=== PATIENT | male | born 1950 | race African-American/Black ===

== ENCOUNTER 2017-02-08 17:29 | Inpatient (IN) ==
[2017-02-08] MEDS ORDERED: MECLIZINE 25 MG TABLET PO STA (18:02)
[2017-02-08] MEDS ORDERED: ONDANSETRON 4 MG/2 ML VIAL IV STA (18:02)
--- NOTE | 2017-02-08 18:10 | Emergency Department Note ---
Arrival - Arrival Chief Complaint: Syncope Stated Complaint: DIZZINESS,BLACK OUT ED Nursing Triage Note: C/O HAVING SYNCOPE EPISODE APX. 1 HOUR [employer]., STATES THIS OCCURED WHEN HE STOOD UP., DENIES HAVING PAIN, + DIZZINESS, DENIES HAVING SOB., DENIES HAVING CHEST PAIN, STATES THIS HAS HAPPEN IN THE PAST, + HEADACHE , EKG OBTAINED AT TIME OF TRIAGE Mode of Arrival: Ambulatory Limitations: No Limitations Source: Patient Time Seen by Provider: 02/08/17 18:02 - History of Present Illness HPI Narrative: This 66-year-old black male presents with a history per his daughter of being extremely dizzy and ataxic this afternoon, stumbling and falling twice, the second time losing consciousness for several seconds. Of note, the patient does have significant problems with persistent orthostasis and is currently being worked up for Parkinson's disease. Currently the patient states he is dizzy and slightly nauseated but denies any chest pain, shortness of breath, diaphoresis, or lesley vomiting with this episode. He does relate that for the last several days he has had an occipital headache but has not had any slurred speech, visual changes, or focal deficits associated with this. As regards his Parkinson's workup, he has developed significant problems with a staggering gait already which apparently the development of orthostasis problems and has exacerbated. Currently at rest in bed he is in no acute medical distress. Onset (ago): hour(s) (Patient presents approximately 1 hour post incident) Allergies/Adverse Reactions: Allergies Allergy/AdvReac Type Severity Reaction Status Date / Time No Known Allergies Allergy Verified 02/08/17 17:40 Home Medications: Home Medications Medication Instructions Recorded Confirmed Type Ergocalciferol (Vitamin D2) 2,000 unit PO DAILY 04/11/16 02/08/17 History [Vitamin D2] Methocarbamol 500 mg PO DAILY 04/11/16 02/08/17 History Cyanocobalamin (Vitamin B-12) 1,000 mcg PO DAILY 02/08/17 02/08/17 History [Vitamin B-12] Gabapentin Cap/Tab [Neurontin 300 mg PO DAILY 02/08/17 02/08/17 History Cap/Tab] [place]-3/Dha/Epa/Fish Oil [Fish Oil 1 each PO DAILY 02/08/17 02/08/17 History 1,000 mg Softgel] Omeprazole [Prilosec] 20 mg PO DAILY 02/08/17 02/08/17 History Sertraline [Zoloft] 100 mg PO DAILY 02/08/17 02/08/17 History Trazodone HCl 100 mg PO DAILY 02/08/17 02/08/17 History Triamterene/Hydrochlorothiazid 1 each PO DAILY 02/08/17 02/08/17 History [Triamterene-Hctz 37.5-25 mg Tb] amLODIPine [Norvasc] 5 mg PO DAILY 02/08/17 02/08/17 History clonazePAM TAB [KlonoPIN] 0.5 mg PO BID 02/08/17 02/08/17 History risperiDONE [Risperidone] 3 mg PO BID 02/08/17 02/08/17 History Review of System - Review of System 12 point system: reviewed and no additional remarkable complaints except as stated - Review of System Constitutional: Present: as per HPI Respiratory: Present: as per HPI Cardiovascular: Present: as per HPI Gastrointestinal: Present: as per HPI Neurological: Present: as per HPI Medical,Surgical,& Family Hx - Medical History Cardio: History of: Hypertension Psychological: History of: Anxiety Disorders, Depression Neurology: History of: Parkinson's Disease Gastrointestinal: History of: GI Problems (ulcers) - Social History Smoking Status: Never smoker Frequency of Alcohol Use: Frequently Type of Drug Use: None Exam Physical Examination: GENERAL: Well developed, well nourished elderly black male in no acute distress. HEENT: Normocephalic. No trauma. Moist mucous membranes. EOMI. PERRLA. ENT NML NECK: Supple. No adenopathy. CARDIAC: Regular. No murmurs. Heart rate 78 CHEST: Clear to auscultation. No respiratory distress. O2 sat 100% ABDOMEN: Soft. Nontender. Active bowel sounds. EXTREMITIES: No trauma. Normal ROM. No pedal edema. SKIN: No diaphoresis. No rash. NEURO: Alert. Oriented 3. Motor, sensory, vibratory intact. Notable was mild cogwheel rigidity. No focal deficits. Vital Signs: Vital Signs Temperature 98.0 F 02/08/17 17:55 Pulse Rate 93 H 02/08/17 17:55 Respiratory Rate 18 02/08/17 18:11 Blood Pressure 143/79 02/08/17 17:55 O2 Sat by Pulse Oximetry 100 02/08/17 17:55 Course - Reevaluation(s) Reevaluation #1: Advise family of the need for hospitalization for evaluation and treatment of his metabolic abnormalities. - Consultations Consultation #1: Discussed with the hospitalist service who will admit for further evaluation treatment. Results - Labs CBC & BMP: 02/08/17 18:04 02/08/17 18:04 Labs: I reviewed the laboratory noted the severe hyponatremia - Impressions EKG: Sinus rhythm at 78, first-degree AV block with normal QRS duration. Occasional PACs. Nonspecific ST changes but no evidence of an acute injury pattern. - Diagnostic Findings Procedure: Chest x-ray: image reviewed by me, report reviewed by me (Normal chest), CT: image reviewed by me, report reviewed by me (Head: Bilateral frontal lobe atrophy with microvascular ischemia but no acute injury noted) Disposition Clinical Impression: Hyponatremia, Presumed Parkinson's disease Case discussed with: patient, patient's family Disposition: Still a Patient Condition: Guarded Time of Disposition: 19:07
[2017-02-08 18:12] LABS: Basophils % 0.2 % (0.0-0.8); Eosinophils % 0.2 % (0.00-10.9); Hematocrit 35.8 VOL% (42.0-52.0); Immature Granulocytes % 0.4 %; Immature Granulocytes Absolute 0.03 #; Lymphocytes # 1.1 10*3/uL (1.4-4.0); Lymphocytes % 13.7 % (21.2-54.2); Mean Corpuscular HGB Conc 33.5 GM/DL (32-36); Mean Corpuscular Hemoglobin 22 PG (27-34); Mean Corpuscular Volume 65.8 FL (87-102); Mean Platelet Volume 11.3 FL (9.6-12.0); Monocytes # 0.6 10*3/uL (0.11-0.8); Neutrophils # 6.4 10*3/uL (1.4-7.4); Neutrophils % 78.5 % (38.7-73.9); Platelet Count 267 T/CUMM (130-400); Red Blood Count 5.44 MC/CUMM (3.8-5.5); Red Cell Distribution Width 15.9 % (9.3-17.3); White Blood Count 8.2 T/CUMM (4-12)
--- NOTE | 2017-02-08 18:23 | CT Report ---
Exam: CT scan of brain without contrast Date: 02/08/2017 Indication: Syncopal Comparison: 04/11/2016 Patient's classification: Emergency department Technical: Images were obtained from the skull base to the vertex without the use of intravenous contrast. Dose reduction was performed with decreasing kv and mA and automated exposure Total DLP: 1042.6 mGy*cm Findings: Brainstem and cerebellum reveal no acute findings. Minimal atrophic changes of the frontal lobes bilaterally. The ventricles are intact. Calvarium is unremarkable. The paranasal sinuses globes and cell and mastoids are unremarkable. Impression: 1. No acute hemorrhage, infarction or mass effect. 2. Minimal atrophic changes of the frontal lobes present bilaterally PROCEDURE INTERPRETED AT [facility] DEPARTMENT OF RADIOLOGY Final Report Signed by: Dr. Enio Magaña
[2017-02-08] MEDS ORDERED: MECLIZINE 25 MG TABLET ONE (18:31)
[2017-02-08] MEDS ORDERED: ONDANSETRON 4 MG/2 ML VIAL ONE (18:31)
[2017-02-08 18:43] LABS: Albumin 3.8 G/DL (3.4-5.0); Bilirubin,Total 0.4 MG/DL (0.2-1.0); Calcium 8.6 MG/DL (8.5-10.1); Osmolality,Calculated 243.1 MOS/KG (273-304); Potassium 3.9 MMOL/L (3.5-5.1); Total Protein 7.9 G/DL (6.4-8.3)
[2017-02-08 18:44] LABS: Troponin I Only < 0.015 NG/ML (0.00-0.045)
--- NOTE | 2017-02-08 18:49 | XRay Report ---
Exam: XR chest 1V portable Date: 02/08/2017 6:11 PM Indication: Shortness of breath Comparison: 04/11/2016 Technical: AP Findings: External cardiac leads oxygen tubing are present. The heart, lungs, mediastinum and bony structures reveal no acute findings. Small granuloma is present that is calcified in the right base unchanged Impression: 1. No acute cardiopulmonary pathology PROCEDURE INTERPRETED AT [facility] DEPARTMENT OF RADIOLOGY Final Report Signed by: Dr. Enio Magaña
[2017-02-08] MEDS ORDERED: SODIUM CHLORIDE 0.9% 1,000 ML IV STA (19:00)
[2017-02-08 19:35] LABS: Apearance,Urine CLEAR (Clear); Bilirubin,Urine Negative (Negative); Blood, Urine Small mg/dL (Negative); Glucose,Urine (UA) 150 mg/dL (Negative); Ketones,Urine Negative (Negative); Nitrite,Urine Negative (Negative); Protein,Urine Negative; Urine Color Colorless (Yellow); Urine Specific Gravity 1.001 (1.001-1.035); Urine Urobilinogen < 2.0 EU/DL (0.2-1.0)
--- NOTE | 2017-02-08 19:36 | Hospitalist History & Physical ---
Assessment and Plan (1) Movement disorder Status: Acute Assessment and plan: The patient is admitted to the hospital with difficulty falling. We will observe for arrhythmia and we will obtain physical and occupational therapy consultations. We will request neurology consultation. The patient has hyponatremia. We will treat him with IV normal saline, hold diuretics, and recheck electrolytes tomorrow. Current Visit: Yes (2) Neck pain Status: Acute Current Visit: Yes (3) Hypertension, essential Status: Acute Current Visit: Yes (4) Anxiety Status: Acute Current Visit: Yes History of Present Illness Chief complaint: Falling at home History of present illness: Mr. 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 I discussed the case with Dr. Brown in the emergency room and he asked us to evaluate the patient for admission. the patient has had neck pain and bilateral arm radiculopathy for several years. The patient was living at home. His daughter came to the locked door of the home and called for him today. She heard him fall after getting up from the couch and he fell again at the doorway. The patient's daughter states that he has had increasing weakness and difficulty with balance. She describes an ongoing investigation at the [place] where he is scheduled to see a neurologist and have further x-rays done of his neck. The patient denies fever, chills, abdominal pain, ear discomfort or congestion. The patient's dizziness and imbalance is moderate, continuous, and gradually worsening. Home Medications Medication Instructions Recorded Confirmed Type Ergocalciferol (Vitamin D2) 2,000 unit PO DAILY 04/11/16 02/08/17 History [Vitamin D2] Methocarbamol 500 mg PO DAILY 04/11/16 02/08/17 History Cyanocobalamin (Vitamin B-12) 1,000 mcg PO DAILY 02/08/17 02/08/17 History [Vitamin B-12] Gabapentin Cap/Tab [Neurontin 300 mg PO DAILY 02/08/17 02/08/17 History Cap/Tab] [place]-3/Dha/Epa/Fish Oil [Fish Oil 1 each PO DAILY 02/08/17 02/08/17 History 1,000 mg Softgel] Omeprazole [Prilosec] 20 mg PO DAILY 02/08/17 02/08/17 History Sertraline [Zoloft] 100 mg PO DAILY 02/08/17 02/08/17 History Trazodone HCl 100 mg PO DAILY 02/08/17 02/08/17 History Triamterene/Hydrochlorothiazid 1 each PO DAILY 02/08/17 02/08/17 History [Triamterene-Hctz 37.5-25 mg Tb] amLODIPine [Norvasc] 5 mg PO DAILY 02/08/17 02/08/17 History clonazePAM TAB [KlonoPIN] 0.5 mg PO BID 02/08/17 02/08/17 History risperiDONE [Risperidone] 3 mg PO BID 02/08/17 02/08/17 History Allergies Allergy/AdvReac Type Severity Reaction Status Date / Time No Known Allergies Allergy Verified 02/08/17 17:40 Medical,Surgical,& Family Hx - Medical History Cardio: History of: Hypertension Psychological: History of: Anxiety Disorders, Depression Neurology: History of: Parkinson's Disease Gastrointestinal: History of: GI Problems (ulcers) - Family History Family History: Reports;: Family Hypertension - Social History Smoking Status: Never smoker Frequency of Alcohol Use: Frequently Type of Drug Use: None Marital Status: Lives With:: Alone Functional capacity: uses cane/walker 12 point system: reviewed and no additional remarkable complaints except as stated Exam - Constitutional Vitals: Period Temp Pulse Resp BP Sys/Schuler Pulse Ox Last 24 Hr 98.0 F-98.0 F 93-93 18-18 143-143/79-79 100-100 Exam: Constitutional System: No distress. No tremulousness. The patient has some passive affect. Head: Normocephalic, atraumatic. Ears, Nose and Throat System: No evidence of Otitis or Mastoiditis. No epistaxis or discharge Eyes System: Pupils equal, round, and reactive. Extraocular muscles intact. Neck: Supple, without adenopathy, No jugular venous distention. No thyromegaly , neck mass, or prior surgery apparent. Respiratory System: Chest clear to auscultation. Cardiovascular System: Heart with regular rate and rhythm. No murmur. GI System: Abdomen soft, nontender. Normo active bowel sounds present. Musculoskeletal System: limbs with no pedal edema. Full distal pulses. Neurological System: No discernable sensory deficit. No aphasia. The patient has some passive rigidity in the upper extremities Psychiatric System: Conversation is rational Capillary Refill: less than 3 sec Results - Labs CBC & BMP: 08/26/17 18:04 02/08/17 18:04 Lab Results: I have reviewed the past 24 hour labs
[2017-02-08 19:45] LABS: Barbiturates Screen,Urine Negative (Negative); Benzodiazepines Screen,Urine Negative (Negative); Cannabinoid Screen,Urine Negative (Negative); Opiate Screen,Urine Negative (Negative); Phencyclidine Screen,Urine Negative (Negative)
[2017-02-08] MEDS ORDERED: ACETAMINOPHEN 325 MG TABLET PO PRN (19:57)
[2017-02-08] MEDS: clonazePAM 0.5 MG TABLET PO SCH (22:00)
[2017-02-08] MEDS: risperiDONE 3 MG TABLET PO SCH (22:00)
[2017-02-08] MEDS: ENOXAPARIN 40 MG/0.4 ML SYRINGE SUBCUT SCH (22:00)
[2017-02-09] MEDS: SODIUM CHLORIDE 0.9% 1,000 ML IV SCH ×3 (01:14→18:30)
[2017-02-09 05:21] LABS: Basophils % 0.1 % (0.0-0.8); Eosinophils % 0.3 % (0.00-10.9); Hematocrit 34.4 VOL% (42.0-52.0); Hemoglobin 11.5 GM/DL (14.0-18.0); Immature Granulocytes % 0.4 %; Immature Granulocytes Absolute 0.03 #; Lymphocytes # 1.1 10*3/uL (1.4-4.0); Lymphocytes % 14.7 % (21.2-54.2); Mean Corpuscular HGB Conc 33.4 GM/DL (32-36); Mean Corpuscular Hemoglobin 22 PG (27-34); Mean Corpuscular Volume 65.8 FL (87-102); Monocytes # 0.6 10*3/uL (0.11-0.8); Monocytes % 8.3 % (1.7-12.7); Neutrophils # 5.9 10*3/uL (1.4-7.4); Neutrophils % 76.2 % (38.7-73.9); Red Blood Count 5.23 MC/CUMM (3.8-5.5); White Blood Count 7.8 T/CUMM (4-12)
[2017-02-09 05:36] LABS: Blood Urea Nitrogen 8 MG/DL (7-18); Calcium 8.9 MG/DL (8.5-10.1); Glucose 92 MG/DL (74-106); Magnesium 2.7 MG/DL (1.8-2.4); Osmolality,Calculated 261.5 MOS/KG (273-304); Potassium 4.4 MMOL/L (3.5-5.1); Sodium 132 MMOL/L (136-145); Troponin I Only < 0.015 NG/ML (0.00-0.045)
[2017-02-09 05:47] LABS: Platelet Count 246 T/CUMM (130-400)
[2017-02-09 07:25] LABS: Hypochromasia Slight
--- NOTE | 2017-02-09 07:53 | EKG Report ---
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
--- NOTE | 2017-02-09 08:36 | Hospitalist Progress Note ---
Assessment and Plan - Time spent with patient Time spent with patient: Less than 30 minutes (1) Hyponatremia Status: Acute Assessment and plan: Patient sodium level has improved with hydration and discontinuation of his diuretic therapy. We will follow-up levels in the a.m. Current Visit: Yes (2) Movement disorder Status: Acute Assessment and plan: Neurology has been consulted to assist with his care. He apparently has been having frequent falls at home. Will involve physical therapy and he may need to consider alternative living arrangements. Current Visit: Yes (3) Neck pain Status: Acute Current Visit: Yes (4) Hypertension, essential Status: Acute Assessment and plan: Blood pressures are currently stable. Continue current regimen. Current Visit: Yes (5) Anxiety Status: Acute Current Visit: Yes Hospitalist: Subjective Interval history: Patient has been seen and chart has been reviewed. Mr. Nguyễn denies any chest pain, shortness of breath, neck pain, abdominal pain, nausea, vomiting, diarrhea, constipation. He states it he feels improved today. Exam - Constitutional Vitals: Period Temp Pulse Resp BP Sys/Schuler Pulse Ox Last 24 Hr 97.6 F-99.8 F 70-93 16-18 132-147/63-79 90-100 General appearance: no acute distress - Head Head exam: Present: normocephalic, atraumatic - Eye Eye exam: Present: EOMI Pupils: Present: ANTHONY - ENT ENT exam: Present: normal exam, normal oropharynx - Neck Neck exam: Present: normal inspection - Respiratory Respiratory exam: Present: clear to auscultation bilaterally. Absent: rales, rhonchi, wheezes - Cardiovascular Cardiovascular exam: Present: regular rate and rhythm. Absent: systolic murmur , tachycardia - GI/Abdominal GI/Abdominal exam: Present: normal bowel sounds, soft. Absent: tenderness, rebound - Extremities Exam Extremities exam: Absent: calf tenderness, edema - Neurological Exam Neurological exam: Present: alert, oriented X3, CN II-XII intact. Absent: motor sensory deficit - Psychiatric Psychiatric exam: Present: normal affect, normal mood. Absent: agitated, anxious - Skin Skin exam: Present: warm, dry. Absent: erythema, rash Results - Labs CBC & BMP: 02/09/17 04:12 02/09/17 04:12 Lab Results: I have reviewed the past 24 hour labs - EKG EKG shows: sinus rhythm - Diagnostic Findings Procedure: Chest x-ray: report reviewed by me, CT: report reviewed by me
[2017-02-09] MEDS: CHOLECALCIFEROL 1,000 UNIT TABLET PO SCH (10:53)
[2017-02-09] MEDS: CYANOCOBALAMIN 500 MCG TABLET PO SCH (10:53)
[2017-02-09] MEDS: PANTOPRAZOLE 40 MG TABLET PO SCH (10:54)
[2017-02-09] MEDS: clonazePAM 0.5 MG TABLET PO SCH ×2 (10:54→21:26)
[2017-02-09] MEDS: amLODIPine 5 MG TABLET PO SCH (10:54)
[2017-02-09] MEDS: risperiDONE 3 MG TABLET PO SCH ×2 (10:55→21:26)
[2017-02-09] MEDS: ENOXAPARIN 40 MG/0.4 ML SYRINGE SUBCUT SCH (21:26)
[2017-02-10] MEDS: SODIUM CHLORIDE 0.9% 1,000 ML IV SCH ×2 (04:49→14:26)
[2017-02-10 06:12] LABS: Basophils % 0.2 % (0.0-0.8); Eosinophils % 0.5 % (0.00-10.9); Hematocrit 32.1 VOL% (42.0-52.0); Hemoglobin 10.4 GM/DL (14.0-18.0); Immature Granulocytes % 0.3 %; Immature Granulocytes Absolute 0.02 #; Lymphocytes # 1.2 10*3/uL (1.4-4.0); Lymphocytes % 18.3 % (21.2-54.2); Mean Corpuscular HGB Conc 32.4 GM/DL (32-36); Mean Corpuscular Hemoglobin 22 PG (27-34); Mean Corpuscular Volume 67.4 FL (87-102); Mean Platelet Volume 11.8 FL (9.6-12.0); Monocytes # 0.6 10*3/uL (0.11-0.8); Monocytes % 9.2 % (1.7-12.7); Neutrophils # 4.6 10*3/uL (1.4-7.4); Neutrophils % 71.5 % (38.7-73.9); Platelet Count 237 T/CUMM (130-400); Red Blood Count 4.76 MC/CUMM (3.8-5.5); Red Cell Distribution Width 16.2 % (9.3-17.3); White Blood Count 6.4 T/CUMM (4-12)
[2017-02-10 06:42] LABS: Calcium 8.5 MG/DL (8.5-10.1); Osmolality,Calculated 272.7 MOS/KG (273-304); Potassium 4.3 MMOL/L (3.5-5.1)
--- NOTE | 2017-02-10 09:20 | Neurology Consult Note ---
History of Present Illness History of present illness: 66 years old right-handed -N[place]ian gentleman with a history of some sort of movement disorder on Risperdal admitted the hospital after he failed twice few minutes apart. Patient reported that he might have passed out for a few seconds but he is not sure. He reported that he fell almost a month ago prior to this. No tongue biting or urinary incontinence reported. No generalized tonic-clonic activity reported either. CT of the head reveals no acute abnormalities. Patient does have some difficulty in walking. No difficulty in performing ADLs at home. Family reported that he has had increasing weakness and difficulty with balance lately. She describes an ongoing investigation at the [place] where he is scheduled to see a neurologist. Patient has no fever chills abdominal pain ear discomfort or congestion. Home Medications Medication Instructions Recorded Confirmed Type Ergocalciferol (Vitamin D2) 2,000 unit PO DAILY 04/11/16 02/08/17 History [Vitamin D2] Methocarbamol 500 mg PO DAILY 04/11/16 02/08/17 History Cyanocobalamin (Vitamin B-12) 1,000 mcg PO DAILY 02/08/17 02/08/17 History [Vitamin B-12] Gabapentin Cap/Tab [Neurontin 300 mg PO DAILY 02/08/17 02/08/17 History Cap/Tab] [place]-3/Dha/Epa/Fish Oil [Fish Oil 1 each PO DAILY 02/08/17 02/08/17 History 1,000 mg Softgel] Omeprazole [Prilosec] 20 mg PO DAILY 02/08/17 02/08/17 History Sertraline [Zoloft] 100 mg PO DAILY 02/08/17 02/08/17 History Trazodone HCl 100 mg PO DAILY 02/08/17 02/08/17 History Triamterene/Hydrochlorothiazid 1 each PO DAILY 02/08/17 02/08/17 History [Triamterene-Hctz 37.5-25 mg Tb] amLODIPine [Norvasc] 5 mg PO DAILY 02/08/17 02/08/17 History clonazePAM TAB [KlonoPIN] 0.5 mg PO BID 02/08/17 02/08/17 History risperiDONE [Risperidone] 3 mg PO BID 02/08/17 02/08/17 History Allergies Allergy/AdvReac Type Severity Reaction Status Date / Time No Known Allergies Allergy Verified 02/08/17 17:40 12 point system: reviewed and no additional remarkable complaints except as stated Medical,Surgical,& Family Hx - Medical History Cardio: History of: Hypertension Psychological: History of: Anxiety Disorders, Depression Neurology: History of: Parkinson's Disease Gastrointestinal: History of: GI Problems (ulcers) - Surgical History Cardiac Surgeries: Patient Denies: Cardiac Catheterization Thoracic Surgeries: Patient denies;: Lobectomy Abdominal Surgeries: Patient denies: Abdominal Surgery Reproductive Surgeries: Patient denies;: Genitourinary Surgery - Family History Family History: Reports;: Family Hypertension - Social History Smoking Status: Never smoker Frequency of Alcohol Use: Frequently Type of Drug Use: None Exam - Constitutional Vitals: Period Temp Pulse Resp BP Sys/Schuler Pulse Ox Last 24 Hr 97.0 F-98.9 F 69-86 16-18 133-165/60-75 93-100 Exam: GENERAL: Patient is in no acute distress. NECK: Neck is supple. There is no JVD. No carotid bruits present. No thyroid masses. CVS: First and second heart sounds are normal. There is no S3 present. Regular rate and rhythm. RESPIRATORY: Lungs are clear to auscultation without any rales or rhonchi. ABDOMEN: Soft and non-tender. Bowel sounds are present. There is no hepatosplenomegaly. EXT: There is no palpable edema. Peripheral pulses are present. Skin: No rashes Central Nervous system: General: Alert, awake and Oriented x 3 Speech: Fluent Comprehension: Intact and normal Facial expressions: Normal Cranial Nerves: CN1/Olfactory: Normal CN II/ Optic: Normal, Visual Colvin unreliable CN III, and : ANTHONY & EOMI CN V: Normal & intact CN VII: face is symmetric CNVIII: Normal CN XI/X/XI/XII: Intact and Normal Motor: Mild bilateral cogwheel rigidity and bradykinesia Strength in the right 4-5/5 Strength in the left 4-5/5 Sensory: Grossly intact for all the modalities of PP, LT and temp sense Reflexes: 1+ and symmetrical Cerebellar function: Slow finger to nose and heel to ornelas testing. Toes: Equivocal Gait: Slightly stooped posture, reduced arm swing. Turning at 180 is in one step Results - Labs CBC & BMP: 02/10/17 05:54 02/10/17 05:54 Assessment and Plan (1) Extrapyramidal syndrome Status: Acute Assessment and plan: He does have quite a bit of signs and symptoms of extrapyramidal syndrome. Etiology is not clear. He has been taking Risperdal for a while which could be the cause. Other differential would include Parkinson disease or Parkinson's plus syndrome. It does require further investigations. I am not quite sure why is he on Risperdal. Does he has any psychiatric illness? Will cut back on Risperdal and try to take him off of it slowly. We will go ahead and perform MRI of the brain and cervical spine. Thank you for the consult Current Visit: Yes
[2017-02-10] MEDS: risperiDONE 3 MG TABLET PO SCH (09:22)
[2017-02-10] MEDS: CYANOCOBALAMIN 500 MCG TABLET PO SCH (09:22)
[2017-02-10] MEDS: CHOLECALCIFEROL 1,000 UNIT TABLET PO SCH (09:22)
[2017-02-10] MEDS: PANTOPRAZOLE 40 MG TABLET PO SCH (09:22)
[2017-02-10] MEDS: amLODIPine 5 MG TABLET PO SCH (09:22)
[2017-02-10] MEDS: clonazePAM 0.5 MG TABLET PO SCH ×2 (09:22→21:12)
--- NOTE | 2017-02-10 15:23 | Magnetic Resonance Report ---
History: Frequent falls. Syncope. Difficulty walking. Difficulty with balance. History of Parkinson's disease Date: 02/10/2017 Study: MRI head without IV contrast Comparison exam: CT head February 08, 2017 The brain was imaged in 3 planes on the 1.5 Dominique magnet without IV contrast, to include diffusion, T2, FLAIR, gradient-echo, and T1-weighted sequences. The ventricles are midline in position without evidence of hydrocephalus. There is no Chiari I malformation. There is no gross pituitary mass. There is no evidence of acute ischemia on the diffusion sequence. There is no mass or parenchymal hemorrhage. There is a minimal amount of ill-defined patchy FLAIR signal in the periventricular white matter without mass effect compatible with changes of small vessel disease. There is no extra-axial hematoma. There is a normal flow void in the superior sagittal sinus. There is no gross flow abnormality in the [place] area. There is no obvious cerebellopontine angle mass. Impression: No acute intracranial process. Mild periventricular small vessel disease PROCEDURE INTERPRETED AT [facility] DEPARTMENT OF RADIOLOGY Final Report Signed by: Dr. Shalonda Hackett
--- NOTE | 2017-02-10 15:31 | Magnetic Resonance Report ---
History: Frequent falls. Syncope. Difficulty walking. Difficulty with balance. History of Parkinson's disease Date: 02/10/2017 Study: MRI cervical spine without contrast Comparison exam: No previous The cervical spine was scanned in the sagittal and axial planes on a 1.5 Dominique magnet without IV contrast. Sequences include T1, T2, and T2 fat sat images. The cervical cord is normal in signal without intrinsic mass lesion or edema on this noncontrast study. There is no Chiari I information. There is moderate degenerative disc narrowing at C5-C6. There is scattered mild to moderate anterior spondylosis at C3-C4 through C6-C7. There are scattered moderate disc desiccation. C2-C3: There is no significant spinal or neural foraminal stenosis. There is mild facet hypertrophy C3-C4: There is mild spinal stenosis related to a broad-based posterior central mild disc protrusion, superimposed upon some minimal bulging disc and vertebral body osteophyte. There is moderate right and mild left neural foraminal narrowing related to uncovertebral and facet hypertrophy C4-C5: There is mild to moderate spinal stenosis related to mild posterior diffuse bulging disc with minimal associated vertebral body osteophyte. There is also mild hypertrophic change of the ligamentum flavum. There is moderate or greater left and moderate right neural foraminal narrowing related to uncovertebral and facet hypertrophy C5-C6: There is mild spinal stenosis related to minimal posterior diffuse disc bulging. There is moderate left neural foraminal narrowing related to facet hypertrophy C6-C7: There is mild spinal stenosis related to mild posterior diffuse disc bulging as well as mild hypertrophic change of the ligament flavum. There is mild to moderate left greater than right neural foraminal narrowing related to facet hypertrophy C7-T1: There is no significant spinal or neural foraminal stenosis Impression: Multilevel mild to moderate spinal stenosis related to posterior bulging or protruding disc without high-grade spinal stenosis or gross cord deformity or cord edema. Please see the above discussion for information regarding the individual levels Multilevel neural foraminal narrowing related to uncovertebral and facet hypertrophy Degenerative disc disease PROCEDURE INTERPRETED AT [facility] DEPARTMENT OF RADIOLOGY Final Report Signed by: Dr. Shalonda Hackett
--- NOTE | 2017-02-10 18:24 | Hospitalist Progress Note ---
Assessment and Plan (1) Movement disorder Status: Acute Assessment and plan: Neurology assisting Current Visit: Yes (2) Neck pain Status: Acute Current Visit: Yes (3) Hypertension, essential Status: Acute Current Visit: Yes (4) Anxiety Status: Acute Current Visit: Yes (5) Hyponatremia Status: Acute Assessment and plan: Resolved Current Visit: Yes Hospitalist: Subjective Interval history: No acute events.. Patient is oriented x3 today. He has no complaints. Exam - Constitutional Vitals: Period Temp Pulse Resp BP Sys/Schuler Pulse Ox Last 24 Hr 97.0 F-98.2 F 69-97 16-20 133-165/60-85 96-100 General appearance: over weight - Head Head exam: Present: normocephalic, atraumatic - Eye Eye exam: Present: EOMI Pupils: Present: ANTHONY - ENT ENT exam: Present: normal exam - Neck Neck exam: Present: normal inspection - Respiratory Respiratory exam: Present: clear to auscultation bilaterally. Absent: rhonchi, wheezes - Cardiovascular Cardiovascular exam: Present: regular rate and rhythm - GI/Abdominal GI/Abdominal exam: Present: normal bowel sounds, soft. Absent: tenderness, rebound - Extremities Exam Extremities exam: Present: normal inspection - Back Exam Back exam: Present: normal inspection - Neurological Exam Neurological exam: Present: alert, oriented X3 - Psychiatric Psychiatric exam: Present: normal affect, normal mood - Skin Skin exam: Present: warm, intact Results - Labs CBC & BMP: 02/10/17 05:54 02/10/17 05:54
[2017-02-10] MEDS: risperiDONE 1 MG TABLET PO SCH (21:12)
[2017-02-10] MEDS: ENOXAPARIN 40 MG/0.4 ML SYRINGE SUBCUT SCH (21:12)
[2017-02-11] MEDS: SODIUM CHLORIDE 0.9% 1,000 ML IV SCH ×2 (02:35→10:19)
[2017-02-11 05:18] LABS: Basophils % 0.3 % (0.0-0.8); Eosinophils # 0.1 10*3/uL (0.0-0.87); Eosinophils % 0.6 % (0.00-10.9); Hematocrit 31.6 VOL% (42.0-52.0); Hemoglobin 10.4 GM/DL (14.0-18.0); Immature Granulocytes % 0.4 %; Immature Granulocytes Absolute 0.03 #; Lymphocytes # 1.3 10*3/uL (1.4-4.0); Lymphocytes % 16.7 % (21.2-54.2); Mean Corpuscular HGB Conc 32.9 GM/DL (32-36); Mean Corpuscular Hemoglobin 22 PG (27-34); Mean Corpuscular Volume 67.5 FL (87-102); Mean Platelet Volume 11.1 FL (9.6-12.0); Monocytes # 0.5 10*3/uL (0.11-0.8); Monocytes % 6.9 % (1.7-12.7); Neutrophils # 5.8 10*3/uL (1.4-7.4); Neutrophils % 75.1 % (38.7-73.9); Platelet Count 214 T/CUMM (130-400); Red Blood Count 4.68 MC/CUMM (3.8-5.5); Red Cell Distribution Width 16.1 % (9.3-17.3); White Blood Count 7.7 T/CUMM (4-12)
[2017-02-11 05:47] LABS: Calcium 8.5 MG/DL (8.5-10.1); Magnesium 2.4 MG/DL (1.8-2.4); Osmolality,Calculated 271.7 MOS/KG (273-304)
[2017-02-11] MEDS: CHOLECALCIFEROL 1,000 UNIT TABLET PO SCH (09:22)
[2017-02-11] MEDS: CYANOCOBALAMIN 500 MCG TABLET PO SCH (09:23)
[2017-02-11] MEDS: PANTOPRAZOLE 40 MG TABLET PO SCH (09:23)
[2017-02-11] MEDS: risperiDONE 1 MG TABLET PO SCH ×2 (09:23→20:30)
[2017-02-11] MEDS: clonazePAM 0.5 MG TABLET PO SCH ×2 (09:24→20:30)
[2017-02-11] MEDS: amLODIPine 5 MG TABLET PO SCH (09:24)
--- NOTE | 2017-02-11 14:08 | Hospitalist Progress Note ---
Hospitalist: Subjective Interval history: Patient has no complaints. He denies any tremors. He states that he had some dizziness but that has resolved. He is working with PT. Exam - Constitutional Vitals: Period Temp Pulse Resp BP Sys/Schuler Pulse Ox Last 24 Hr 97.4 F-98.1 F 71-88 18-20 137-166/74-85 94-99 General appearance: normal weight - Head Head exam: Present: normal inspection - Respiratory Respiratory exam: Present: clear to auscultation bilaterally. Absent: rales, rhonchi, wheezes - Cardiovascular Cardiovascular exam: Present: regular rate and rhythm - GI/Abdominal GI/Abdominal exam: Present: normal bowel sounds, soft. Absent: distended, tenderness - Psychiatric Psychiatric exam: Present: normal affect Results - Labs CBC & BMP: 02/11/17 05:03 02/11/17 05:03 - Impressions 1. EPS: being seen by neurology; risperdal dose decreased; seems to have resolved; C spine MRI shows multilevel mild to moderate spinal stenosis without cord compression; MRI brain unremarkable 2. Dehydration: on IVFs; eating well; d/c IVFs 3. HTN: bp elevated; start with stopping fluids 4. Hyponatremia: resolved 5. Anxiety: stable Plan: continue current therapy and as noted above likey d/c in am
--- NOTE | 2017-02-11 14:10 | Neurology Progress Note ---
Neurology - PN : Subjective Interval history: Patient seems to be doing about the same. No new problems reported. Tolerating reduced dose of Risperdal well. MRI brain and cervical spine looks okay. Exam (Progress Note) - Constitutional Vitals: Period Temp Pulse Resp BP Sys/Schuler Pulse Ox Last 24 Hr 97.4 F-98.1 F 71-88 18-20 137-166/74-85 94-99 Exam: GENERAL: Patient is in no acute distress. NECK: Neck is supple. There is no JVD. No carotid bruits present. No thyroid masses. CVS: First and second heart sounds are normal. There is no S3 present. Regular rate and rhythm. RESPIRATORY: Lungs are clear to auscultation without any rales or rhonchi. ABDOMEN: Soft and non-tender. Bowel sounds are present. There is no hepatosplenomegaly. EXT: There is no palpable edema. Peripheral pulses are present. Skin: No rashes Central Nervous system: General: Alert, awake and Oriented x 3 Speech: Fluent Comprehension: Intact and normal Facial expressions: Normal Cranial Nerves: CN1/Olfactory: Normal CN II/ Optic: Normal, Visual Colvin unreliable CN III, and : ANTHONY & EOMI CN V: Normal & intact CN VII: face is symmetric CNVIII: Normal CN XI/X/XI/XII: Intact and Normal Motor: Mild bilateral cogwheel rigidity and bradykinesia Strength in the right 4-5/5 Strength in the left 4-5/5 Sensory: Grossly intact for all the modalities of PP, LT and temp sense Reflexes: 1+ and symmetrical Cerebellar function: Slow finger to nose and heel to ornelas testing. Toes: Equivocal Gait: Slightly stooped posture, reduced arm swing. Turning at 180 is in one step Results - Labs CBC & BMP: 02/11/17 05:03 02/11/17 05:03 Assessment and Plan (1) Extrapyramidal syndrome Status: Acute Assessment and plan: Continue current with the Risperdal Okay to go home from neuro standpoint Follow-up in 4 week Current Visit: Yes
[2017-02-11] MEDS: ENOXAPARIN 40 MG/0.4 ML SYRINGE SUBCUT SCH (20:30)
[2017-02-12 07:33] LABS: Basophils % 0.2 % (0.0-0.8); Eosinophils # 0.1 10*3/uL (0.0-0.87); Eosinophils % 0.5 % (0.00-10.9); Hematocrit 36.9 VOL% (42.0-52.0); Hemoglobin 11.8 GM/DL (14.0-18.0); Immature Granulocytes % 0.8 %; Immature Granulocytes Absolute 0.07 #; Lymphocytes # 1.7 10*3/uL (1.4-4.0); Lymphocytes % 18.2 % (21.2-54.2); Mean Corpuscular Hemoglobin 22 PG (27-34); Mean Corpuscular Volume 68.6 FL (87-102); Monocytes # 0.7 10*3/uL (0.11-0.8); Monocytes % 7.7 % (1.7-12.7); Neutrophils # 6.6 10*3/uL (1.4-7.4); Neutrophils % 72.6 % (38.7-73.9); Platelet Count 281 T/CUMM (130-400); Red Blood Count 5.38 MC/CUMM (3.8-5.5); Red Cell Distribution Width 16.4 % (9.3-17.3); White Blood Count 9.1 T/CUMM (4-12)
[2017-02-12 08:06] LABS: Calcium 9.3 MG/DL (8.5-10.1); Magnesium 2.5 MG/DL (1.8-2.4); Osmolality,Calculated 268.1 MOS/KG (273-304); Potassium 4.1 MMOL/L (3.5-5.1)
[2017-02-12] MEDS: risperiDONE 1 MG TABLET PO SCH (08:59)
[2017-02-12] MEDS: amLODIPine 5 MG TABLET PO SCH (09:00)
[2017-02-12] MEDS: CHOLECALCIFEROL 1,000 UNIT TABLET PO SCH (09:00)
[2017-02-12] MEDS: CYANOCOBALAMIN 500 MCG TABLET PO SCH (09:00)
[2017-02-12] MEDS: clonazePAM 0.5 MG TABLET PO SCH (09:00)
[2017-02-12] MEDS: PANTOPRAZOLE 40 MG TABLET PO SCH (09:41)
--- NOTE | 2017-02-12 10:31 | Discharge Summary ---
<Loni Weir - Last Filed: 02/12/17 10:33> Hospital Course - Hospital Course Hospital Course: Mr Nguyễn 66 y/o w/PMHx of hypertension, anxiety, depression, Parkinson's Disease, and GI ulcers presented on 02/08/17 to the ED for further evaluation of dizziness, stumbling and falling, and brief LOC. IN ED: Significant LABS: Sodium 121. Head CT: minimal atrophic changes of frontal lobes bilaterally, nothing acute. CXR:negative. Hospital Medicine consulted for further evaluation of balance difficulties and falls with dizziness. Admitted 02/08/17, consulted PT and OT for evaluation, consulted neurology for assistance, Started IV NS, hold diuretics and rechecked sodium in a.m. Neurology plans: decreased dose of Risperdal with noticeable improvements of extrapyramidal syndrome, Parkinson's. Brain MRI: showed no acute changes. Cervical MRI: mild to moderate spinal stenosis; degenerative disc disease, nothing acute. Hyponatremia resolved. Blood cultures shows no growth at 3 days. Neurology recommends to continue with Risperdal at lower dose, and okay to discharge home , with follow up in 4 weeks. Today 02/12/17 patient is feeling better, dizziness resolved, and remains hemodynamically stable and is ready for discharge. He will need to follow up with Dr Wall (Neurology) in 4 weeks. He will need to follow up with primary care physician in 1-2 weeks. Further recommendations of discharge care to follow per Dr Brown. Specialty Discharge - Follow Up or Referrals Follow up with: Torey Wall MD [Physician] - 1 Month Discharge Plan - Discharge Medications New risperiDONE TAB [RisperDAL TAB] 2 mg PO BID #45 tablet Continue Methocarbamol 500 mg PO DAILY Ergocalciferol (Vitamin D2) [Vitamin D2] 2,000 unit PO DAILY amLODIPine [Norvasc] 5 mg PO DAILY Omeprazole [Prilosec] 20 mg PO DAILY Cyanocobalamin (Vitamin B-12) [Vitamin B-12] 1,000 mcg PO DAILY Sertraline [Zoloft] 100 mg PO DAILY Cosmos-3/Dha/Epa/Fish Oil [Fish Oil 1,000 mg Softgel] 1 each PO DAILY clonazePAM TAB [KlonoPIN] 0.5 mg PO BID Trazodone HCl 100 mg PO DAILY Gabapentin Cap/Tab [Neurontin Cap/Tab] 300 mg PO DAILY Discontinued risperiDONE [Risperidone] 3 mg PO BID Triamterene/Hydrochlorothiazid [Triamterene-Hctz 37.5-25 mg Tb] 1 each PO DAILY - Follow Up or Referral Follow Up: Torey Wall MD [Physician] - 1 Month - Forms/Instructions Exam - Constitutional Vitals: Period Temp Pulse Resp BP Sys/Schuler Pulse Ox Last 24 Hr 97.5 F-98.3 F 66-87 18-20 134-162/72-89 94-100 Discharge Results Procedures and tests throughout hospitalization: Pending Orders 02/08/17 18:35 Blood Culture Stat Labs on day of discharge: Labs from last 24 hours 02/12/17 02/12/17 07:16 07:16 WBC 9.1 RBC 5.38 Hgb 11.8 L Hct 36.9 L MCV 68.6 L MCH 22 L MCHC 32.0 RDW 16.4 Plt Count 281 D MPV 11.0 Neut % (Auto) 72.6 Lymph % (Auto) 18.2 L Antelope % (Auto) 7.7 Eos % (Auto) 0.5 Baso % (Auto) 0.2 Neut # (Auto) 6.6 Lymph # (Auto) 1.7 Antelope # (Auto) 0.7 Eos # (Auto) 0.1 Baso # (Auto) 0.0 Immature Gran % 0.8 Nucleated RBC % 0.0 Immature Gran # 0.07 Nucleated RBCs # 0.00 Immature Plt Fraction 0.0 Sodium 135 L Potassium 4.1 Chloride 100 Carbon Dioxide 28 Anion Gap 11.1 BUN 6 L Creatinine 1.10 GFR Calculation 95 BUN/Creatinine Ratio 5.00 L Glucose 116 H Calculated Osmolality 268.1 L Calcium 9.3 Magnesium 2.5 H Preliminary micro results at discharge 02/08/17 18:35 Blood Culture - Preliminary Blood No growth at 3 days 02/08/17 18:04 Blood Culture - Preliminary Blood No growth at 3 days DS: Provider Date of admission: 02/08/17 19:27 Primary care physician: . No PCP Attending physician on admission: Stephanie Berry MD Consults: 02/08/17 19:57 Consult to Occupational Therapy [CONS] Routine Reason for Occupational Therapy: Weakness Consult to Physical Therapy [CONS] Routine Reason for Physical Therapy: Evaluate and Treat Consult to Physician [CONS] Routine Comment: falling, ?Parkinsonism Consulting Provider: Torey Wall Consult to Specialist Group: Neurology Consult Notification Comment: left message at 0845 of consult and office returned call at 0900 Discharging clinician: Loni Weir NP <Jj Brown - Last Filed: 02/12/17 11:00> Discharge Plan - Discharge Data Condition at Discharge: Stable Discharge Diet: regular diet Activity: resume usual activities as tolerated, as per physical therapy - Forms/Instructions Additional Discharge Instructions: follow up with your main doctor in 1-2 weeks Discharge Results - Impressions Patient seen and examined. I have reviewed the discharge summary by KERRY Weir, and I agree with the documentation. Patient is hemodynamically and clinically stable. He has no complaints. He is safe for discharge. Discharge diagnosis: 1. Falls, likely 2nd to EPS: patient was seen by neurology and his risperadal was changed from 3mg bid to 2mg bid. Patient has not had any falls or extra movement. His head CT was negative. Brain MRI did not show any acute findings. C spine MRI showed multilevel mild to moderate spinal stenosis related to posterior bulging or protruding disc. There was no high grade spinal stenosis, gross cord deformity, or cord edema. He will need have home PT. 2. Extrapyramidal syndrome: risperadal was decreased from 3mg bid to 2mg bid. Symptoms improved. 3. Hyponatremia: resolved 4. dehydration: s/p fluids; resolved; patient was eating well 5. Anxiety: stable 6. HTN: controlled Discharge medications: please see medication reconciliation list Discharge status: stable Discharge disposition: home Function, elimination, and locomotion: independent Follow up: PCP in 1-[address] Wall of neurology in 4 weeks
[2017-02-12 12:34] VITALS: BP 149/79
== END 2017-02-12 13:31 | disposition home or self-care (01) | DRG 57 ==
LOC: N.ED 17:29 → SUATTDRO 19:27 → N.EDINP 19:27 → N.TELEN 19:50 → N.5E 02-10 16:27
PROVIDERS: ADMIT Internal Medicine; ATTEND Internal Medicine

== ENCOUNTER 2017-03-13 18:07 | Inpatient (IN) ==
[2017-03-13 18:48] LABS: Basophils % 0.2 % (0.0-0.8); Eosinophils % 0.4 % (0.00-10.9); Hematocrit 35.2 VOL% (42.0-52.0); Hemoglobin 11.6 GM/DL (14.0-18.0); Immature Granulocytes % 0.2 %; Immature Granulocytes Absolute 0.02 #; Lymphocytes # 1.5 10*3/uL (1.4-4.0); Lymphocytes % 15.9 % (21.2-54.2); Mean Corpuscular Hemoglobin 22 PG (27-34); Monocytes # 0.4 10*3/uL (0.11-0.8); Monocytes % 4.1 % (1.7-12.7); Neutrophils # 7.2 10*3/uL (1.4-7.4); Neutrophils % 79.2 % (38.7-73.9); Platelet Count 181 T/CUMM (130-400); Red Blood Count 5.25 MC/CUMM (3.8-5.5); Red Cell Distribution Width 16.7 % (9.3-17.3); White Blood Count 9.1 T/CUMM (4-12)
[2017-03-13 18:59] LABS: INR 1.1; PT Patient Result 11.6 SECS
[2017-03-13] MEDS ORDERED: SODIUM CHLORIDE 0.9% 500 ML IV STA (19:18)
[2017-03-13 19:24] LABS: Alanine Aminotransferase 31 U/L (16-61); Albumin 3.5 G/DL (3.4-5.0); Alkaline Phosphatase 71 U/L (45-117); Aspartate Amino Transferase 23 U/L (0-37); Blood Urea Nitrogen 4 MG/DL (7-18); Calcium 8.5 MG/DL (8.5-10.1); Glucose 137 MG/DL (74-106); Magnesium 1.8 MG/DL (1.8-2.4); Osmolality,Calculated 243.9 MOS/KG (273-304); Potassium 3.2 MMOL/L (3.5-5.1); Sodium 122 MMOL/L (136-145); Total Protein 7.2 G/DL (6.4-8.3); Troponin I Only < 0.015 NG/ML (0.00-0.045)
[2017-03-13 19:30] LABS: Apearance,Urine CLEAR (Clear); Bilirubin,Urine Negative (Negative); Blood, Urine Small mg/dL (Negative); Glucose,Urine (UA) Negative (Negative); Ketones,Urine Negative (Negative); Nitrite,Urine Negative (Negative); Protein,Urine Negative; RBC,Urine <1 /HPF (0-4); Urine Color Colorless (Yellow); Urine Specific Gravity 1.001 (1.001-1.035); Urine Urobilinogen < 2.0 EU/DL (0.2-1.0)
[2017-03-13 19:36] LABS: Barbiturates Screen,Urine Negative (Negative); Benzodiazepines Screen,Urine Negative (Negative); Cannabinoid Screen,Urine Negative (Negative); Opiate Screen,Urine Negative (Negative); Phencyclidine Screen,Urine Negative (Negative)
--- NOTE | 2017-03-13 20:05 | CT Report ---
Exam: CT head without intravenous contrast Clinical History: 66 years Male syncope Technique: Axial computed tomography images of the head/brain without intravenous contrast. The CT exam was performed using one or more of the following dose reduction techniques: Automated exposure control, adjustment of the mA and/or kV according to patient size, or use of iterative reconstruction technique. Comparison: February 08, 2017 Findings: Brain: Mild microangiopathic small vessel ischemic changes, stable in the interim. Kovacs-white matter distinction maintained. No mass effect. No intra or extra-axial hemorrhage. Ventricles: Unremarkable. No ventriculomegaly. Bones/joints: Calvarium is intact Soft tissues: Unremarkable Sinuses: No active paranasal sinus process Mastoid air cells: Unremarkable as visualized. Impression: 1. No acute intracranial abnormality PROCEDURE INTERPRETED AT [facility] DEPARTMENT OF RADIOLOGY Final Report Signed by: Gabriella Kovacs MD
--- NOTE | 2017-03-13 20:11 | CT Report ---
Exam: CT cervical spine without IV contrast Clinical History: 66 years,Male,fall with neck pain Technique: Axial computed tomography images of the cervical spine without intravenous contrast. Comparison: No relevant prior studies available. Findings: Vertebra: Cervical alignment is anatomic. The vertebral body heights are maintained with no evidence of fracture. Disc/spinal Canal/neural foramina: Multilevel spondylosis with near complete disc space loss at C5-C6. Soft tissues: Unremarkable Thyroid: Symmetric in size and attenuation Lung apices: Well aerated Impression: 1. No evidence of traumatic injury to the cervical spine PROCEDURE INTERPRETED AT [facility] DEPARTMENT OF RADIOLOGY Final Report Signed by: Gabriella Kovacs MD
--- NOTE | 2017-03-13 20:12 | XRay Report ---
Portable chest Exam date: 03/13/2017 731 PM Indication: Shortness of breath, cough Comparison: February 08, 2017 Findings: Cardiomediastinal contours are normal. Chronic granulomatous changes are again noted. No acute osseous abnormalities. Visualized upper abdomen demonstrates no acute pathology. Impression: No acute cardiopulmonary findings PROCEDURE INTERPRETED AT [facility] DEPARTMENT OF RADIOLOGY Final Report Signed by: Gabriella Kovacs MD
[2017-03-13] MEDS ORDERED: POTASSIUM CHLORIDE 20 MEQ TABLET PO STA (20:46)
--- NOTE | 2017-03-13 21:00 | Emergency Department Note ---
Eric Ramon Brittany, am scribing for, and in the presence of, Mannie Duncan MD 19:45. Perla Ramon Charles R, MD, personally performed the services described in this documentation, ascribed by Brigette Reyes in my presence, and it is both accurate and complete . Arrival - Arrival Chief Complaint: Syncope Stated Complaint: DIZZY, FAINTED, LOST CONSIOUSNESS ED Nursing Triage Note: syncopal episode while walking approx 1700 - pt fell and hit his chin - abrasion to chin area - pt is awake and alert at present - pt had recent episode approx 3 weeks ago and was admitted to hospital Mode of Arrival: Ambulatory Limitations: No Limitations Source: Patient, Family Time Seen by Provider: 03/13/17 18:55 - History of Present Illness HPI Narrative: This is a 66 y/o black male,who presents to the ED for further neurological evaluation S/P syncopal episode which happened at 1700 today. His daughter notes pt was at [facility] walking when all of a sudden " he went down". He has no Hx of seizures. His daughter states the pt eyes went in the back of his head, but pt did not shake. There was LOC but we are unsure of how long. Pt denies dizziness or CP. His family states this has been ongoing for "some months". His family states the pt did not turn his head as he fell. He is not on blood thinners at this time. His family states the pt has seen multiple neurologists but has yet to be Dx with anything. Pt has no other complaints/pain in the ED at this time. Pt has a PMhx of HTN, Parkinson's Disease, and stomach ulcers. Pt denies a surgical Hx. Pt has a family medical Hx of HTN and heart disease. Pt denies a social hx. Onset (ago): hour(s) (Started at 1700 today) Consistency: constant Severity: moderate, similar to previous episodes Allergies/Adverse Reactions: Allergies Allergy/AdvReac Type Severity Reaction Status Date / Time No Known Allergies Allergy Verified 02/08/17 17:40 Home Medications: Home Medications Medication Instructions Recorded Confirmed Type Ergocalciferol (Vitamin D2) 2,000 unit PO QAM 04/11/16 03/13/17 History [Vitamin D2] Methocarbamol 500 mg PO QID PRN 04/11/16 03/13/17 History Cyanocobalamin (Vitamin B-12) 1,000 mcg PO QAM 02/08/17 03/13/17 History [Vitamin B-12] Gabapentin Cap/Tab [Neurontin 300 mg PO BEDTIME 02/08/17 03/13/17 History Cap/Tab] Sharon-3/Dha/Epa/Fish Oil [Fish Oil 1 each PO QAM 02/08/17 03/13/17 History 1,000 mg Softgel] Omeprazole [Prilosec] 20 mg PO QAM 02/08/17 03/13/17 History Sertraline [Zoloft] 100 mg PO QAM 02/08/17 03/13/17 History Trazodone HCl 100 mg PO BEDTIME 02/08/17 03/13/17 History amLODIPine [Norvasc] 5 mg PO QAM 02/08/17 03/13/17 History clonazePAM TAB [KlonoPIN] 0.5 mg PO BID 02/08/17 03/13/17 History risperiDONE TAB [RisperDAL TAB] 2 mg PO BID #45 tablet 02/12/17 03/13/17 Rx Albuterol Inhaler [Proventil 2 puff INH Q4H PRN 03/13/17 03/13/17 History Inhaler] Review of System - Review of System 12 point system: reviewed and no additional remarkable complaints except as stated - Review of System Cardiovascular: Present: syncope. Absent: chest pain Neurological: Absent: vertigo Medical,Surgical,& Family Hx - Medical History Cardio: History of: Hypertension Psychological: History of: Anxiety Disorders, Depression Neurology: History of: Parkinson's Disease Gastrointestinal: History of: GI Problems (ulcers) - Surgical History Cardiac Surgeries: Patient Denies: Cardiac Catheterization Thoracic Surgeries: Patient denies;: Lobectomy Abdominal Surgeries: Patient denies: Abdominal Surgery Reproductive Surgeries: Patient denies;: Genitourinary Surgery - Family History Family History: Reports;: Family Hypertension - Social History Smoking Status: Never smoker Frequency of Alcohol Use: None Type of Drug Use: None Exam Vital Signs: Vital Signs Temperature 97.2 F L 03/13/17 18:34 Pulse Rate 84 03/13/17 18:34 Respiratory Rate 20 03/13/17 18:34 Blood Pressure 146/65 03/13/17 18:34 O2 Sat by Pulse Oximetry 100 03/13/17 18:30 - General General appearance: alert, in no apparent distress - Head Head exam: Present: other (Abrasion noted to the chin ) - Eye Eye exam: Present: PERRL, EOMI. Absent: nystagmus - ENT ENT exam: Present: mucous membranes moist - Neck Neck exam: Present: full ROM, trachea midline. Absent: tenderness - Chest Chest inspection: Present: symmetric chest wall rise. Absent: tenderness - Respiratory Respiratory exam: Present: normal lung sounds bilaterally. Absent: respiratory distress - Cardiovascular Cardiovascular exam: Present: regular rate, normal rhythm, normal heart sounds - Abdominal Exam Abdominal exam: Present: soft, normal bowel sounds. Absent: tenderness - Rectal Exam Rectal exam: Present: deferred - Extremities Exam Extremities exam: Present: normal capillary refill. Absent: pedal edema - Back Exam Back exam: Present: normal inspection, full ROM. Absent: tenderness, muscle spasm, rashes - Neurological Exam Neurological exam: Present: alert, oriented X3, CN II-XII intact. Absent: motor sensory deficit - Psychiatric Psychiatric exam: Present: normal affect, normal mood. Absent: depressed, agitated, anxious, flat affect, manic - Skin Skin exam: Present: warm, dry, intact, normal color. Absent: rash, cyanosis, diaphoresis Course - Consultations Consultation #1: Hospitalist will admit patient Time: 20:47 Results - Labs CBC & BMP: 03/13/17 18:43 03/13/17 18:43 Lab Results: I have reviewed the patients labs - Diagnostic Findings Procedure: Chest x-ray: report reviewed by me (No acute cardiopulmonary findings ), CT: report reviewed by me (Head CT: No acute intracranial abnormality. Cervical Spine CT: No evidence of traumatic injury to the cervical spine) Disposition Clinical Impression: Hyponatremia, Syncope and collapse, Abrasion of chin Case discussed with: patient, patient's family Disposition: Still a Patient Condition: Stable Time of Disposition: 21:00
[2017-03-13 21:24] LABS: Basophils % 0.4 % (0.0-0.8); Eosinophils # 0.1 10*3/uL (0.0-0.87); Eosinophils % 0.7 % (0.00-10.9); Hematocrit 34.4 VOL% (42.0-52.0); Hemoglobin 11.4 GM/DL (14.0-18.0); Immature Granulocytes % 0.4 %; Immature Granulocytes Absolute 0.03 #; Lymphocytes # 1.6 10*3/uL (1.4-4.0); Lymphocytes % 19.1 % (21.2-54.2); Mean Corpuscular HGB Conc 33.1 GM/DL (32-36); Mean Corpuscular Hemoglobin 22 PG (27-34); Mean Corpuscular Volume 66.4 FL (87-102); Mean Platelet Volume 12.1 FL (9.6-12.0); Monocytes # 0.5 10*3/uL (0.11-0.8); Monocytes % 6.5 % (1.7-12.7); Neutrophils # 6.1 10*3/uL (1.4-7.4); Neutrophils % 72.9 % (38.7-73.9); Platelet Count 192 T/CUMM (130-400); Red Blood Count 5.18 MC/CUMM (3.8-5.5); Red Cell Distribution Width 16.7 % (9.3-17.3); White Blood Count 8.3 T/CUMM (4-12)
[2017-03-13] MEDS ORDERED: POTASSIUM CHLORIDE 20 MEQ TABLET PO ONE (21:25)
[2017-03-13] MEDS ORDERED: ACETAMINOPHEN 325 MG TABLET PO PRN (21:55)
[2017-03-13] MEDS ORDERED: ONDANSETRON 4 MG/2 ML VIAL IV PRN (21:55)
[2017-03-13] MEDS ORDERED: DOCUSATE SODIUM 100 MG CAPSULE PO PRN (21:55)
[2017-03-13] MEDS ORDERED: ENOXAPARIN 40 MG/0.4 ML SYRINGE SUBCUT SCH (22:00)
[2017-03-13] MEDS ORDERED: ALBUTEROL 2.5 MG/3 ML NEB RESP TX PRN (22:08)
[2017-03-13] MEDS ORDERED: DEXTROSE 50% 25 GM/50 ML SYRINGE IV PRN (22:13)
[2017-03-13] MEDS ORDERED: GLUCAGON 1 MG VIAL IM PRN (22:13)
--- NOTE | 2017-03-13 22:29 | Hospitalist History & Physical ---
Assessment and Plan - Time spent with patient Time spent with patient: Less than 30 minutes (1) Syncope and collapse Status: Acute Assessment and plan: CT head and neck negative Suspect this is from hyponatremia since patient has a history of these events. We will hold his HCTZ and fluid restrictions Repeat labs in morning Patient has a history of first-degree AV block with PACs on old EKGs We will do serial troponins and EKGs Consult cardiology Current Visit: Yes (2) Alcoholism Status: Chronic Assessment and plan: This issue has not been addressed in the past We will need to field counsel patient on alcoholism Patient will receive banana bag and thiamine daily Current Visit: Yes (3) Hyponatremia Status: Chronic Assessment and plan: Will do fluid restriction Pending further workup Current Visit: Yes (4) Extrapyramidal syndrome Status: Chronic Assessment and plan: We will consult neurology for this Patient has had a problem with this in the past we have decreased his risperidone from 3 mg to 10 mg He is also had a MRI that showed spinal stenosis Could possibly be from alcohol withdrawal or psychological issues Current Visit: Yes (5) Hyperglycemia Status: Acute Assessment and plan: Likely due from hyponatremia We will check Accu-Cheks every 6 Current Visit: Yes History of Present Illness Chief complaint: syncope History of present illness: Called to the ER for Mr. Nguyễn who is a 66 year old male that had a syncope episode in the [employer] parking lot today around 1700. Patient states approximately 20 minutes prior to arriving in he threw up on the side of the road. Once he arrived at [facility], he got out of the car and began walking to the store where he felt dizzy and passed out. Family member witnessed this and said he was out approximately for 1 minute. Patient denies having any chest pain, shortness of breath, palpitation or fatigue prior to falling. Family denied any type of gaze deviation or shaking of extremities. When patient woke up patient was awake and alert and understood what it happened. A CT head and neck was done and was negative. Lab work revealed hyponatremia, hypokalemia, and hyperglycemia. Potassium was replaced in the ER. Patient was admitted approximately 1 month ago for same issue. His HCTZ was held and he was given normal saline. His sodium corrected and he was to follow-up with his primary care physician who is Dr. Lemus. He did not follow with Dr. villagran because he did not make an appointment. Patient also has a history of extrapyramidal syndrome to which Dr. Wall was following him last admission. Patient was in the process of having a Parkinson's workup. Dr. Wall was decreasing his risperidone from 3 mg to 2 mg and his symptoms seemed to improve while inpatient. He followed up with Dr. Fernando yesterday and he continued current regimen. Patient also had a MRI done of the head and neck. MRI head was negative but MRI of the neck showed spinal stenosis with bulging disc.Patient has a significant psychological history including anxiety, depression, PTSD, paranoia, and schizophrenia. Patient's daughter states that he is a chronic alcoholic drinking 4-516 ounce beers every day for many years. We will admit patient under the hospital medicine service, consult neurology for reoccurrence of hyponatremia and extrapyramidal symptoms, cardiology consult for syncope episode (old EKG's show AV 1st degree heart block with PACs), fluid restrictions , hold diuretic, electrolyte replacement, and begin workup from an endocrine aspect. Medications on chart were reviewed and reconciled. However I do not believe this is the complete list of patient's medications when comparing our list to [facility]. We will need to call the [place] pharmacy and confirm list of home medications. Patient is a full code. Home Medications Medication Instructions Recorded Confirmed Type Ergocalciferol (Vitamin D2) 2,000 unit PO QAM 04/11/16 03/13/17 History [Vitamin D2] Methocarbamol 500 mg PO QID PRN 04/11/16 03/13/17 History Cyanocobalamin (Vitamin B-12) 1,000 mcg PO QAM 02/08/17 03/13/17 History [Vitamin B-12] Gabapentin Cap/Tab [Neurontin 300 mg PO BEDTIME 02/08/17 03/13/17 History Cap/Tab] [place]-3/Dha/Epa/Fish Oil [Fish Oil 1 each PO QAM 02/08/17 03/13/17 History 1,000 mg Softgel] Omeprazole [Prilosec] 20 mg PO QAM 02/08/17 03/13/17 History Sertraline [Zoloft] 100 mg PO QAM 02/08/17 03/13/17 History Trazodone HCl 100 mg PO BEDTIME 02/08/17 03/13/17 History amLODIPine [Norvasc] 5 mg PO QAM 02/08/17 03/13/17 History clonazePAM TAB [KlonoPIN] 0.5 mg PO BID 02/08/17 03/13/17 History risperiDONE TAB [RisperDAL TAB] 2 mg PO BID #45 tablet 02/12/17 03/13/17 Rx Albuterol Inhaler [Proventil 2 puff INH Q4H PRN 03/13/17 03/13/17 History Inhaler] Allergies Allergy/AdvReac Type Severity Reaction Status Date / Time No Known Allergies Allergy Verified 02/08/17 17:40 Medical,Surgical,& Family Hx - Medical History Cardio: History of: Hypertension, Cardiovascular Problems (First-degree AV block with PACs) No history of: CHF, [place] Psychological: History of: Anxiety Disorders, Depression, Schizophrenia, Psychiatric Problems (PTSD, paranoia) Neurology: History of: Parkinson's Disease Endocrine: No history of: Adrenal Disease, Diabetes Mellitus (IDDM), Diabetes Mellitus ( NIDDM), Thyroid Disorder Respiratory: History of: Respiratory Problems (Lung granuloma 2002) No history of: Asthma, COPD, Obstructive Sleep Apnea, Pulmonary Embolism, Pulmonary Hypertension Renal: No history of: Renal Problems Genitourinary: History of: Prostate Problems (BPH) Gastrointestinal: History of: GERD, GI Problems (ulcers) Musculoskeletal: History of: Herniated Disk Hematology: History of: Anemia - Surgical History Cardiac Surgeries: Patient Denies: Cardiac Catheterization Thoracic Surgeries: Patient denies;: Lobectomy Abdominal Surgeries: Patient denies: Abdominal Surgery Reproductive Surgeries: Patient denies;: Genitourinary Surgery - Family History Family History: Reports;: Family Cancer (Sisterbreast cancer), Family Heart Disease (Father), Family Hypertension, Family Psychiatric Problems (Brother alcohol dependence), Additional Family History (MotherAlzheimer's, dementia) - Social History Smoking Status: Never smoker Frequency of Alcohol Use: Frequently Type of Drug Use: None Marital Status: Lives With:: Children Functional capacity: independent ambulation - Constitutional Constitutional: Present: frequent falls. Absent: anorexia, chills, fatigue, fever(s) - EENT Eyes: Absent: blurry vision Ears: Absent: as per HPI Nose, mouth and throat: Absent: headache(s), sore throat - Cardiovascular Cardiovascular: Present: lightheadedness. Absent: chest pain at rest, chest pain with activity, dyspnea, edema, orthopnea, palpitations - Respiratory Respiratory: Absent: cough, dyspnea on exertion - Gastrointestinal Gastrointestinal: Absent: abdominal pain, cramping, nausea, vomiting - Genitourinary Genitourinary: Absent: difficulty urinating - Musculoskeletal Musculoskeletal: Absent: muscle weakness Exam - Constitutional Vitals: Period Temp Pulse Resp BP Sys/Schuler Pulse Ox Last 24 Hr 97.2 F-97.2 F 81-84 19-20 146-158/65-82 97-100 General appearance: no acute distress, over weight - Head Head exam: Present: normal inspection, normocephalic - Eye Eye exam: Present: EOMI Pupils: Present: ANTHONY, normal accommodation - ENT ENT exam: Present: normal exam - Neck Neck exam: Present: normal inspection - Respiratory Respiratory exam: Present: clear to auscultation bilaterally (Respirations even and unlabored. Symmetrical rise and fall of chest noted.). Absent: accessory muscle use - Cardiovascular Cardiovascular exam: Present: regular rate and rhythm. Absent: diastolic murmur , systolic murmur - GI/Abdominal GI/Abdominal exam: Present: normal bowel sounds, soft. Absent: firm, tenderness - Extremities Exam Extremities exam: Present: normal inspection, normal capillary refill, full ROM - Back Exam Back exam: Present: normal inspection - Neurological Exam Neurological exam: Present: alert, oriented X3 (Makes good eye contact. Able to answer questions appropriately follows all commands. No seizure-like activity. Muscle strength 4 out of 5 equal and symmetrical.), CN II-XII intact (Grossly) - Psychiatric Psychiatric exam: Present: depressed, flat affect - Skin Skin exam: Present: normal color, warm, dry, intact Results - Labs CBC & BMP: 03/13/17 21:07 03/13/17 18:43 Lab Results: I have reviewed the past 24 hour labs - EKG EKG results: interpreted by YANIRA
--- NOTE | 2017-03-13 22:36 | Order Completion Report ---
See report scanned to EMR
[2017-03-13] MEDS ORDERED: THIAMINE INJ 100 MG, FOLIC ACID INJ 1 MG, MAGNESIUM SULF INJ 2 GM, MULTIVITAMIN INJ 10 ... IV ONE (23:00)
--- NOTE | 2017-03-14 01:19 | Order Completion Report ---
See report scanned to EMR
[2017-03-14 05:56] LABS: Basophils % 0.3 % (0.0-0.8); Eosinophils % 0.4 % (0.00-10.9); Hematocrit 34.4 VOL% (42.0-52.0); Immature Granulocytes % 0.4 %; Immature Granulocytes Absolute 0.03 #; Lymphocytes # 1.1 10*3/uL (1.4-4.0); Lymphocytes % 16.6 % (21.2-54.2); Mean Corpuscular Hemoglobin 22 PG (27-34); Mean Corpuscular Volume 67.5 FL (87-102); Monocytes # 0.5 10*3/uL (0.11-0.8); Monocytes % 7.9 % (1.7-12.7); Neutrophils % 74.4 % (38.7-73.9); Platelet Count 170 T/CUMM (130-400); White Blood Count 6.8 T/CUMM (4-12)
[2017-03-14 06:19] LABS: Anisocytosis 1+; Hypochromasia 1+; Microcytosis 1+; Ovalocytes Slight; Platelet Estimate Adequate; Tear Drop Cells Few
[2017-03-14 06:32] LABS: Alanine Aminotransferase 32 U/L (16-61); Albumin 3.3 G/DL (3.4-5.0); Alkaline Phosphatase 66 U/L (45-117); Aspartate Amino Transferase 20 U/L (0-37); Bilirubin,Total < 0.39 MG/DL (0.2-1.0); Blood Urea Nitrogen 6 MG/DL (7-18); Calcium 8.6 MG/DL (8.5-10.1); Glucose 110 MG/DL (74-106); Magnesium 2.8 MG/DL (1.8-2.4); Osmolality,Calculated 271.8 MOS/KG (273-304); Potassium 4.8 MMOL/L (3.5-5.1); Sodium 137 MMOL/L (136-145); Total Protein 6.9 G/DL (6.4-8.3)
[2017-03-14] MEDS ORDERED: INSULIN LISPRO 100 UNIT/ML SUBCUT SCH (07:30)
[2017-03-14] MEDS ORDERED: SERTRALINE 100 MG TABLET PO SCH (09:00)
[2017-03-14] MEDS ORDERED: PANTOPRAZOLE 40 MG TABLET PO SCH (09:00)
[2017-03-14] MEDS ORDERED: CHOLECALCIFEROL 1,000 UNIT TABLET PO SCH (09:00)
[2017-03-14] MEDS ORDERED: CYANOCOBALAMIN 500 MCG TABLET PO SCH (09:00)
[2017-03-14] MEDS ORDERED: THIAMINE 200 MG/2 ML VIAL IV SCH (09:00)
[2017-03-14] MEDS ORDERED: amLODIPine 5 MG TABLET PO SCH (09:00)
[2017-03-14] MEDS ORDERED: risperiDONE 1 MG TABLET PO SCH (09:00)
[2017-03-14] MEDS ORDERED: clonazePAM 0.5 MG TABLET PO SCH (09:00)
--- NOTE | 2017-03-14 10:47 | Neurology Consult Note ---
History of Present Illness History of present illness: Mr. Nguyễn is a 66 year old -[place] gentleman who is being admitted to the hospital with recurrent syncopal episode. This is fourth time he passed out in the last 6-7 months. Patient reported he was walking [place] [facility] when all of a sudden he passed out. The downtime was 2 minutes or less. When he woke up he was a little confused for a minute or 2 and felt better/fine. He is still drinking on a regular basis. He has not seen his psychiatrist for extrapyramidal syndrome. He was found to have hyponatremia. Home Medications Medication Instructions Recorded Confirmed Type Ergocalciferol (Vitamin D2) 2,000 unit PO QAM 04/11/16 03/13/17 History [Vitamin D2] Methocarbamol 500 mg PO QID PRN 04/11/16 03/13/17 History Cyanocobalamin (Vitamin B-12) 1,000 mcg PO QAM 02/08/17 03/13/17 History [Vitamin B-12] Gabapentin Cap/Tab [Neurontin 300 mg PO BEDTIME 02/08/17 03/13/17 History Cap/Tab] [place]-3/Dha/Epa/Fish Oil [Fish Oil 1 each PO QAM 02/08/17 03/13/17 History 1,000 mg Softgel] Omeprazole [Prilosec] 20 mg PO QAM 02/08/17 03/13/17 History Sertraline [Zoloft] 100 mg PO QAM 02/08/17 03/13/17 History Trazodone HCl 100 mg PO BEDTIME 02/08/17 03/13/17 History amLODIPine [Norvasc] 5 mg PO QAM 02/08/17 03/13/17 History clonazePAM TAB [KlonoPIN] 0.5 mg PO BID 02/08/17 03/13/17 History risperiDONE TAB [RisperDAL TAB] 2 mg PO BID #45 tablet 02/12/17 03/13/17 Rx Albuterol Inhaler [Proventil 2 puff INH Q4H PRN 03/13/17 03/13/17 History Inhaler] Allergies Allergy/AdvReac Type Severity Reaction Status Date / Time No Known Allergies Allergy Verified 02/08/17 17:40 12 point system: reviewed and no additional remarkable complaints except as stated Medical,Surgical,& Family Hx - Medical History Cardio: History of: Hypertension, Cardiovascular Problems (First-degree AV block with PACs) No history of: CHF, [place] Psychological: History of: Anxiety Disorders, Depression, Schizophrenia, Psychiatric Problems (PTSD, paranoia) Neurology: History of: Migraine, Parkinson's Disease Endocrine: No history of: Adrenal Disease, Diabetes Mellitus (IDDM), Diabetes Mellitus ( NIDDM), Thyroid Disorder Respiratory: History of: Bronchitis, Respiratory Problems (Lung granuloma 2002) No history of: Asthma, COPD, Obstructive Sleep Apnea, Pulmonary Embolism, Pulmonary Hypertension Renal: No history of: Renal Problems Genitourinary: History of: Prostate Problems (BPH) Gastrointestinal: History of: GERD, GI Problems (ulcers) Musculoskeletal: History of: Back/Neck Problems, Herniated Disk Hematology: History of: Anemia Other: History of: Eczema - Surgical History Cardiac Surgeries: Patient Denies: Cardiac Catheterization Thoracic Surgeries: Patient denies;: Organ Transplant, Lobectomy Abdominal Surgeries: Patient denies: Abdominal Surgery Reproductive Surgeries: Patient denies;: Genitourinary Surgery - Family History Family History: Reports;: Family Cancer (Sisterbreast cancer), Family Heart Disease (Father), Family Hematology (daughter-does not produce enough blood platelets), Family Hypertension, Family Psychiatric Problems (Brotheralcohol dependence), Additional Family History (MotherAlzheimer's, dementia) Denies;: Family Stroke - Social History Smoking Status: Never smoker Frequency of Alcohol Use: Frequently Type of Drug Use: None Exam - Constitutional Vitals: Period Temp Pulse Resp BP Sys/Schuler Pulse Ox Last 24 Hr 97.2 F-98.8 F 66-89 18-20 118-158/58-82 95-100 Exam: GENERAL: Patient is in no acute distress. NECK: Neck is supple. There is no JVD. No carotid bruits present. No thyroid masses. CVS: First and second heart sounds are normal. There is no S3 present. Regular rate and rhythm. RESPIRATORY: Lungs are clear to auscultation without any rales or rhonchi. ABDOMEN: Soft and non-tender. Bowel sounds are present. There is no hepatosplenomegaly. EXT: There is no palpable edema. Peripheral pulses are present. Skin: No rashes Central Nervous system: General: Alert, awake and Oriented x 3 Speech: Fluent Comprehension: Intact and normal Facial expressions: Normal Cranial Nerves: CN1/Olfactory: Normal CN II/ Optic: Normal, Visual Colvin unreliable CN III, and : ANTHONY & EOMI CN V: Normal & intact CN VII: face is symmetric CNVIII: Normal CN XI/X/XI/XII: Intact and Normal Motor: Bulk and Tone is normal. Mild bilateral hand tremor Strength in the right 5/5 Strength in the left 5/5 Sensory: Grossly intact for all the modalities of PP, LT and temp sense Reflexes: 1+ and symmetrical Cerebellar function: Normal finger to nose and heel to ornelas testing. Toes: Equivocal Gait: Able to get up and walk Assessment: Syncopal episode Extrapyramidal syndrome Alcoholism Hyponatremia Recommendations: Syncopal episode likely related to metabolic etiology such as hyponatremia which in turn possibly related to alcoholism. 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 He uses antipsychotics for possible schizophrenia or psychotic disorder and I have recommended him to see a psychiatrist to see if Risperdal can be stopped. This does not require D2 receptor agonist at this point. He probably will need long- term video EEG monitoring as an outpatient to rule out seizures. Thank you for the consultation Results - Labs CBC & BMP: 03/14/17 05:30 03/14/17 05:30
--- NOTE | 2017-03-14 11:50 | Discharge Summary ---
<Loni Weir - Last Filed: 03/14/17 12:19> Hospital Course - Hospital Course Hospital Course: Mr Nguyễn 66 y/o w/PMHx HTN, Parkinson Disease, stomach ulcers, daily beer consumption of 6 pack daily presented to the ED 03/13/17 for further evaluation of syncopal episode. IN ED: H&H Stable, Sodium 122, K 3.2, BUN 4, Glucose 137, Urinalysis negative for infection. Toxicology negative. Cervical CT: nothing traumatic or acute. CXR: nothing acute. Head CT: nothing acute. Hospital Medicine consulted for admission; Fluid restriction, serial troponins, EKGs, consult cardiology, banana bag and thiamine daily, consult neurology. Neurology consult/Recommendations: Syncopal episode likely related to metabolic etiology, hyponatremia which possibly related to alcoholism and medications including zoloft and trazadone. I have stopped his trazadone. 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 He uses antipsychotics for PTSD and hearing voices, but hypotension and syncope can occur at higher doses. Dr. Wall does recommend an outpatient EEG. I also told the daughter he needs to start going to for help and counseling. His hyponatremia has resolved with IVF. He needs to have weekly serum sodiums and he needs to see his psychiatrist to possible adjust some of his meds. He needs to stop drinking. I will give him salt tabs daily but will need to monitor his blood pressure. F/u with Dr. [facility] at [facility] and Dr. Nguyễn from psychiatry. Patient seen and examined. Hospital course reviewed and edited. Family, two daughters interviewed. [facility] offers sitters. Patient had his risperdal recently increased to 3 mg po bid. Both his trazadone and zoloft can lower his sodium. Specialty Discharge - Follow Up or Referrals Follow up with: Dr Gopi [Other] - [address] ariel [Other] - 1 Week Discharge Plan - Discharge Data Disposition: Disch To Home/Self Care - Discharge Medications New Folic Acid Tab 1 mg PO DAILY #30 tablet Thiamine Tab [Vitamin B1 Tab] 100 mg PO DAILY #30 tablet Sodium Chloride Tab 1 gm PO BID #30 tablet Continue Methocarbamol 500 mg PO QID PRN PRN Reason: MUSCLE SPASMS Ergocalciferol (Vitamin D2) [Vitamin D2] 2,000 unit PO QAM amLODIPine [Norvasc] 5 mg PO QAM Omeprazole [Prilosec] 20 mg PO QAM Cyanocobalamin (Vitamin B-12) [Vitamin B-12] 1,000 mcg PO QAM Sertraline [Zoloft] 100 mg PO QAM [place]-3/Dha/Epa/Fish Oil [Fish Oil 1,000 mg Softgel] 1 each PO QAM Albuterol Inhaler [Proventil Inhaler] 2 puff INH Q4H PRN PRN Reason: Shortness Of Breath/Wheezing clonazePAM TAB [KlonoPIN] 0.5 mg PO BID Gabapentin Cap/Tab [Neurontin Cap/Tab] 300 mg PO BEDTIME Changed risperiDONE TAB [RisperDAL TAB] 3 mg PO BID #45 tablet Discontinued Trazodone HCl 100 mg PO BEDTIME - Follow Up or Referral Follow Up: Dr Gopi [Other] - [address] ariel [Other] - 1 Week Neurology, [Other] - 2 Weeks - Forms/Instructions Exam - Constitutional Vitals: Period Temp Pulse Resp BP Sys/Schuler Pulse Ox Last 24 Hr 97.2 F-98.8 F 66-89 18-20 118-158/58-82 95-100 Discharge Results Procedures and tests throughout hospitalization: Pending Orders 03/13/17 22:43 Arginine Vasopressin, P Stat Labs on day of discharge: Labs from last 24 hours 03/14/17 03/14/17 03/14/17 09:35 09:35 08:05 WBC RBC Hgb Hct MCV MCH MCHC RDW Plt Count MPV Neut % (Auto) Lymph % (Auto) [place] % (Auto) Eos % (Auto) Baso % (Auto) Neut # (Auto) Lymph # (Auto) [place] # (Auto) Eos # (Auto) Baso # (Auto) Immature Gran % Nucleated RBC % Immature Gran # Nucleated RBCs # Platelet Estimate Immature Plt Fraction Hypochromasia Anisocytosis Microcytosis Tear Drop Cells Ovalocytes INR PT Patient/Control Mix D-Dimer, Quantitative Sodium Potassium Chloride Carbon Dioxide Anion Gap BUN Creatinine GFR Calculation BUN/Creatinine Ratio Glucose POC Glucose Hemoglobin A1c Calculated Osmolality Calcium Magnesium Total Bilirubin AST ALT Alkaline Phosphatase Troponin I < 0.015 B-Natriuretic Peptide Total Protein Albumin Globulin Albumin/Globulin Ratio Free T4 TSH 3rd Generation Prolactin Urine Color Urine Appearance Urine pH Ur Specific [place] Urine Protein Urine Glucose (UA) Urine Ketones Urine Blood Urine Nitrate Urine Bilirubin Urine Urobilinogen Urine Leukocytes Urine RBC Ur Culture Indicated? Urine Osmolality Ur Random Creatinine 30 Ur Random Sodium 43.0 Urine Opiates Screen Ur Barbiturates Screen Ur Phencyclidine Scrn U Amphetamine/Methamph U Benzodiazepines Scrn U Cocaine Metab Screen U Cannabinoids Screen Serum Alcohol 03/14/17 03/14/17 03/14/17 07:42 05:30 05:30 WBC 6.8 RBC 5.10 Hgb 11.0 L Hct 34.4 L MCV 67.5 L MCH 22 L MCHC 32.0 RDW 17.0 Plt Count 170 MPV Neut % (Auto) 74.4 H Lymph % (Auto) 16.6 L [place] % (Auto) 7.9 Eos % (Auto) 0.4 Baso % (Auto) 0.3 Neut # (Auto) 5.0 Lymph # (Auto) 1.1 L [place] # (Auto) 0.5 Eos # (Auto) 0.0 Baso # (Auto) 0.0 Immature Gran % 0.4 Nucleated RBC % 0.0 Immature Gran # 0.03 Nucleated RBCs # 0.00 Platelet Estimate Adequate Immature Plt Fraction 0.0 Hypochromasia 1+ Anisocytosis 1+ Microcytosis 1+ Tear Drop Cells Few Ovalocytes Slight INR PT Patient/Control Mix D-Dimer, Quantitative Sodium 137 Potassium 4.8 Chloride 104 Carbon Dioxide 27 Anion Gap 10.8 BUN 6 L Creatinine 1.00 GFR Calculation 107 BUN/Creatinine Ratio 6.00 Glucose 110 H POC Glucose 128 H Hemoglobin A1c Calculated Osmolality 271.8 L Calcium 8.6 Magnesium 2.8 H Total Bilirubin < 0.39 AST 20 ALT 32 Alkaline Phosphatase 66 Troponin I B-Natriuretic Peptide Total Protein 6.9 Albumin 3.3 L Globulin 3.6 H Albumin/Globulin Ratio 0.9 L Free T4 TSH 3rd Generation Prolactin Urine Color Urine Appearance Urine pH Ur Specific [place] Urine Protein Urine Glucose (UA) Urine Ketones Urine Blood Urine Nitrate Urine Bilirubin Urine Urobilinogen Urine Leukocytes Urine RBC Ur Culture Indicated? Urine Osmolality Ur Random Creatinine Ur Random Sodium Urine Opiates Screen Ur Barbiturates Screen Ur Phencyclidine Scrn U Amphetamine/Methamph U Benzodiazepines Scrn U Cocaine Metab Screen U Cannabinoids Screen Serum Alcohol 03/14/17 03/14/17 03/13/17 05:30 03:12 22:44 WBC RBC Hgb Hct MCV MCH MCHC RDW Plt Count MPV Neut % (Auto) Lymph % (Auto) [place] % (Auto) Eos % (Auto) Baso % (Auto) Neut # (Auto) Lymph # (Auto) [place] # (Auto) Eos # (Auto) Baso # (Auto) Immature Gran % Nucleated RBC % Immature Gran # Nucleated RBCs # Platelet Estimate Immature Plt Fraction Hypochromasia Anisocytosis Microcytosis Tear Drop Cells Ovalocytes INR PT Patient/Control Mix D-Dimer, Quantitative Sodium Potassium Chloride Carbon Dioxide Anion Gap BUN Creatinine GFR Calculation BUN/Creatinine Ratio Glucose POC Glucose Hemoglobin A1c 6.3 Calculated Osmolality Calcium Magnesium Total Bilirubin AST ALT Alkaline Phosphatase Troponin I < 0.015 B-Natriuretic Peptide Total Protein Albumin Globulin Albumin/Globulin Ratio Free T4 TSH 3rd Generation Prolactin Urine Color Urine Appearance Urine pH Ur Specific [place] Urine Protein Urine Glucose (UA) Urine Ketones Urine Blood Urine Nitrate Urine Bilirubin Urine Urobilinogen Urine Leukocytes Urine RBC Ur Culture Indicated? Urine Osmolality 162 Ur Random Creatinine Ur Random Sodium Urine Opiates Screen Ur Barbiturates Screen Ur Phencyclidine Scrn U Amphetamine/Methamph U Benzodiazepines Scrn U Cocaine Metab Screen U Cannabinoids Screen Serum Alcohol 03/13/17 03/13/17 03/13/17 22:43 22:43 22:43 WBC RBC Hgb Hct MCV MCH MCHC RDW Plt Count MPV Neut % (Auto) Lymph % (Auto) [place] % (Auto) Eos % (Auto) Baso % (Auto) Neut # (Auto) Lymph # (Auto) [place] # (Auto) Eos # (Auto) Baso # (Auto) Immature Gran % Nucleated RBC % Immature Gran # Nucleated RBCs # Platelet Estimate Immature Plt Fraction Hypochromasia Anisocytosis Microcytosis Tear Drop Cells Ovalocytes INR PT Patient/Control Mix D-Dimer, Quantitative Sodium Potassium Chloride Carbon Dioxide Anion Gap BUN Creatinine GFR Calculation BUN/Creatinine Ratio Glucose POC Glucose Hemoglobin A1c Calculated Osmolality Calcium Magnesium Total Bilirubin AST ALT Alkaline Phosphatase Troponin I B-Natriuretic Peptide Total Protein Albumin Globulin Albumin/Globulin Ratio Free T4 0.94 TSH 3rd Generation 3.560 Prolactin Urine Color Urine Appearance Urine pH Ur Specific [place] Urine Protein Urine Glucose (UA) Urine Ketones Urine Blood Urine Nitrate Urine Bilirubin Urine Urobilinogen Urine Leukocytes Urine RBC Ur Culture Indicated? Urine Osmolality Ur Random Creatinine Ur Random Sodium Urine Opiates Screen Ur Barbiturates Screen Ur Phencyclidine Scrn U Amphetamine/Methamph U Benzodiazepines Scrn U Cocaine Metab Screen U Cannabinoids Screen Serum Alcohol < 15 L 03/13/17 03/13/17 03/13/17 21:07 21:07 20:30 WBC 8.3 RBC 5.18 Hgb 11.4 L Hct 34.4 L MCV 66.4 L MCH 22 L MCHC 33.1 RDW 16.7 Plt Count 192 MPV 12.1 H Neut % (Auto) 72.9 Lymph % (Auto) 19.1 L [place] % (Auto) 6.5 Eos % (Auto) 0.7 Baso % (Auto) 0.4 Neut # (Auto) 6.1 Lymph # (Auto) 1.6 [place] # (Auto) 0.5 Eos # (Auto) 0.1 Baso # (Auto) 0.0 Immature Gran % 0.4 Nucleated RBC % 0.0 Immature Gran # 0.03 Nucleated RBCs # 0.00 Platelet Estimate Immature Plt Fraction 0.0 Hypochromasia Anisocytosis Microcytosis Tear Drop Cells Ovalocytes INR PT Patient/Control Mix D-Dimer, Quantitative <= 0.5 Sodium Potassium Chloride Carbon Dioxide Anion Gap BUN Creatinine GFR Calculation BUN/Creatinine Ratio Glucose POC Glucose Hemoglobin A1c Calculated Osmolality Calcium Magnesium Total Bilirubin AST ALT Alkaline Phosphatase Troponin I B-Natriuretic Peptide Total Protein Albumin Globulin Albumin/Globulin Ratio Free T4 TSH 3rd Generation Prolactin 12.4 Urine Color Urine Appearance Urine pH Ur Specific [place] Urine Protein Urine Glucose (UA) Urine Ketones Urine Blood Urine Nitrate Urine Bilirubin Urine Urobilinogen Urine Leukocytes Urine RBC Ur Culture Indicated? Urine Osmolality Ur Random Creatinine Ur Random Sodium Urine Opiates Screen Ur Barbiturates Screen Ur Phencyclidine Scrn U Amphetamine/Methamph U Benzodiazepines Scrn U Cocaine Metab Screen U Cannabinoids Screen Serum Alcohol 03/13/17 03/13/17 03/13/17 18:43 18:43 18:43 WBC RBC Hgb Hct MCV MCH MCHC RDW Plt Count MPV Neut % (Auto) Lymph % (Auto) [place] % (Auto) Eos % (Auto) Baso % (Auto) Neut # (Auto) Lymph # (Auto) [place] # (Auto) Eos # (Auto) Baso # (Auto) Immature Gran % Nucleated RBC % Immature Gran # Nucleated RBCs # Platelet Estimate Immature Plt Fraction Hypochromasia Anisocytosis Microcytosis Tear Drop Cells Ovalocytes INR 1.1 PT Patient/Control Mix 11.6 D-Dimer, Quantitative Sodium 122 L Potassium 3.2 L Chloride 88 L Carbon Dioxide 24 Anion Gap 13.2 BUN 4 L Creatinine 1.10 GFR Calculation 95 BUN/Creatinine Ratio 3.00 L Glucose 137 H POC Glucose Hemoglobin A1c Calculated Osmolality 243.9 L Calcium 8.5 Magnesium 1.8 Total Bilirubin 0.50 AST 23 ALT 31 Alkaline Phosphatase 71 Troponin I < 0.015 B-Natriuretic Peptide 5 Total Protein 7.2 Albumin 3.5 Globulin 3.7 H Albumin/Globulin Ratio 0.9 L Free T4 TSH 3rd Generation Prolactin Urine Color Urine Appearance Urine pH Ur Specific [place] Urine Protein Urine Glucose (UA) Urine Ketones Urine Blood Urine Nitrate Urine Bilirubin Urine Urobilinogen Urine Leukocytes Urine RBC Ur Culture Indicated? Urine Osmolality Ur Random Creatinine Ur Random Sodium Urine Opiates Screen Ur Barbiturates Screen Ur Phencyclidine Scrn U Amphetamine/Methamph U Benzodiazepines Scrn U Cocaine Metab Screen U Cannabinoids Screen Serum Alcohol 03/13/17 03/13/17 03/13/17 18:43 18:30 18:30 WBC 9.1 RBC 5.25 Hgb 11.6 L Hct 35.2 L MCV 67.0 L MCH 22 L MCHC 33.0 RDW 16.7 Plt Count 181 MPV 12.0 Neut % (Auto) 79.2 H Lymph % (Auto) 15.9 L [place] % (Auto) 4.1 Eos % (Auto) 0.4 Baso % (Auto) 0.2 Neut # (Auto) 7.2 Lymph # (Auto) 1.5 [place] # (Auto) 0.4 Eos # (Auto) 0.0 Baso # (Auto) 0.0 Immature Gran % 0.2 Nucleated RBC % 0.0 Immature Gran # 0.02 Nucleated RBCs # 0.00 Platelet Estimate Immature Plt Fraction 0.0 Hypochromasia Anisocytosis Microcytosis Tear Drop Cells Ovalocytes INR PT Patient/Control Mix D-Dimer, Quantitative Sodium Potassium Chloride Carbon Dioxide Anion Gap BUN Creatinine GFR Calculation BUN/Creatinine Ratio Glucose POC Glucose Hemoglobin A1c Calculated Osmolality Calcium Magnesium Total Bilirubin AST ALT Alkaline Phosphatase Troponin I B-Natriuretic Peptide Total Protein Albumin Globulin Albumin/Globulin Ratio Free T4 TSH 3rd Generation Prolactin Urine Color Colorless Urine Appearance Clear Urine pH 6.0 Ur Specific [place] 1.001 Urine Protein Negative Urine Glucose (UA) Negative Urine Ketones Negative Urine Blood Small Urine Nitrate Negative Urine Bilirubin Negative Urine Urobilinogen < 2.0 H Urine Leukocytes Negative Urine RBC <1 Ur Culture Indicated? Not indicated Urine Osmolality Ur Random Creatinine Ur Random Sodium Urine Opiates Screen Negative Ur Barbiturates Screen Negative Ur Phencyclidine Scrn Negative U Amphetamine/Methamph Negative U Benzodiazepines Scrn Negative U Cocaine Metab Screen Negative U Cannabinoids Screen Negative Serum Alcohol DS: Provider Date of admission: 03/13/17 21:42 Primary care physician: . No PCP Attending physician on admission: Joon Jorgensen MD Consults: 03/13/17 21:55 Consult to Physician [CONS] Routine Comment: syncope Consulting Provider: Camilo Tejeda Consulting Provider Notified: Yes When should Consulting Provider be notified: Now Consult to Specialist Group: Cardiology When should Consulting Provider be notified: Now Person Notified: JAMAL Date Notified: 03/14/17 Time Notified: 08:41 Consult to Physician [CONS] Routine Comment: syncope; hyponatremia Consulting Provider: Torey Wall Consulting Provider Notified: Yes When should Consulting Provider be notified: Now Consult to Specialist Group: Neurology When should Consulting Provider be notified: Now Person Notified: SHOSHANA Date Notified: 03/14/17 Time Notified: 09:07 03/13/17 22:03 Consult to Case Mgmt/Social Srvs [CONS] Routine Reason for Case Mgmt/Social Srvs: Discharge Planning Consult Comment: please schedule discharge appointments for patient Consult to Occupational Therapy [CONS] Routine Reason for Occupational Therapy: Evaluate and Treat Consult to Physical Therapy [CONS] Routine Reason for Physical Therapy: Evaluate and Treat Discharging clinician: Loni Weir NP <Caitlin Linares - Last Filed: 03/14/17 13:49> Hospital Course - Time spent with patient Time with patient DS: Greater than 30 minutes (50 min) Discharge Plan - Discharge Data Condition at Discharge: Stable Discharge Diet: diabetic diet Activity: resume usual activities as tolerated Hygiene: no restrictions Weight Bearing at Discharge: full weight bearing Exam - Constitutional General appearance: normal weight, no acute distress - Respiratory Respiratory exam: Present: clear to auscultation bilaterally. Absent: rhonchi, wheezes - Cardiovascular Cardiovascular exam: Present: regular rate and rhythm. Absent: systolic murmur - GI/Abdominal GI/Abdominal exam: Present: normal bowel sounds, soft. Absent: tenderness - Neurological Exam Neurological exam: Present: alert, oriented X3 - Psychiatric Psychiatric exam: Present: normal affect, normal mood
[2017-03-14 12:09] VITALS: BP 151/73
--- NOTE | 2017-03-14 15:40 | Cardiology Consult Note ---
I, Kari Cook RN, am scribing for, and in the presence of, Camilo Tejeda MD 15:40. Assessment and Plan - Time spent with patient Time spent with patient: Greater than 30 minutes (Due to assessment, planning, documentation, medication review) (1) Syncope and collapse Status: Acute Assessment and plan: I agree that the symptoms appear to be related to metabolic, neurologic, and medication issues. I do not see any evidence of high risk/acute cardiac issues. I agree with the current plan. No new cardiac recommendations at this time. Current Visit: Yes (2) Movement disorder Status: Acute Current Visit: No (3) Anxiety Status: Acute Current Visit: No (4) Alcoholism Status: Chronic Current Visit: Yes (5) Extrapyramidal syndrome Status: Chronic Current Visit: Yes (6) Hypokalemia Status: Acute Assessment and plan: He was given replacement potassium, this morning his potassium is 4.8. Current Visit: Yes (7) Hyponatremia Status: Acute Assessment and plan: He was given normal saline bolus, this morning his sodium is 137. Current Visit: Yes (8) Hypertension, essential Status: Acute Current Visit: Yes (9) Neck pain Status: Acute Current Visit: No History of Present Illness - Data of Consult Patient: new to practice Consult date: 03/13/17 Requesting Physician: Karlene Grubbs Primary care physician: Christine Brown - Consult Narrative Reason for consult: syncope History of present illness: Insurance Verifier: New to cardiology PCP: Dr. Brown at [facility] Mr. Nguyễn is a 66 year old male with a history of hypertension, anxiety, depression, schizophrenia, paranoia, and he is being evaluated for Parkinson's disease. 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 He denies ever having had a stress test or heart catheterization done. He denies any surgical history. Family history is significant for father with heart disease and brother with hypertension. He reports he is a lifetime non-smoker. Mr. Nguyễn states he was in his normal state of health until yesterday while in the [employer] parking lot, he became dizzy and passed out. He states his daughters was with him and she said he was passed out for about 2 minutes. He denies any symptoms prior to passing out other than the dizziness. He said when he came to he was slightly confused for just a short amount of time, but he states this quickly resolved. He says that the dizziness did continue for some time after he passed out. He says he has these episodes frequently, stating the last one was about a month ago. EKG showed sinus rhythm with first- degree AV block, this is unchanged from his EKG on his last admission. On arrival, his sodium was 122 and potassium was 3.2. He has been given fluids and potassium replacement, these have been corrected. Troponin has been negative 3. He had a negative chest x-ray and negative CT of the head. He denies any chest pain or shortness of breath before or after his syncopal episode. Mr. Nguyễn is currently resting in bed in no acute distress. He denies any chest pain, shortness of breath, palpitations, or dizziness. He feels he is at his normal state at this time. Current Medications Acetaminophen (Tylenol Tab) 650 mg PO Q4H PRN PRN Reason: Fever, Headache, Mild Pain Hydrocodone Bitart/Acetaminophen ([place] 5-325) 1 tablet PO Q4H PRN PRN Reason: Pain Mild (1-3) Albuterol Sulfate (Proventil Neb) 2.5 mg RESP [place] Q4H PRN PRN Reason: Shortness of Breath/Wheezing [facility] [place] Last Admin: 03/14/17 09:29 Dose: 5 mg Cholecalciferol (Vitamin D3) 2,[facility] [place] Last Admin: 03/14/17 09:29 Dose: 2,000 unit Clonazepam (Klonopin) 0.5 mg PO BID [facility] Last Admin: 03/14/17 09:29 Dose: 0.5 mg Cyanocobalamin (Vitamin B12 Tab) 1,000 mcg PO QAM [facility] Last Admin: 03/14/17 09:30 Dose: 1,000 mcg Docusate Sodium (Colace Cap) 100 mg PO BID PRN PRN Reason: Constipation Enoxaparin Sodium (Lovenox) 40 mg SUBCUT Q24H [facility] Last Admin: 03/14/17 00:21 Dose: 40 mg Gabapentin (Neurontin Cap/Tab) 300 mg PO BEDTIME [facility] Ondansetron HCl (Zofran Inj) 4 mg IV Q4H PRN PRN Reason: Nausea Pantoprazole Sodium (Protonix Tab) 40 mg PO DAILY [facility] Last Admin: 03/14/17 09:30 Dose: 40 mg Risperidone (Risperdal Tab) 2 mg PO BID [facility] Last Admin: 03/14/17 09:29 Dose: 2 mg Sertraline HCl (Zoloft) 100 mg PO QAM [facility] Last Admin: 03/14/17 09:29 Dose: 100 mg Thiamine HCl (Vitamin B1 Inj) 100 mg IV DAILY [facility] Last Admin: 03/14/17 09:29 Dose: 100 mg Trazodone HCl (Desyrel) 100 mg PO BEDTIME [facility] CC: Caitlin Linares MD - Home Medications and Allergies Home Medications: Home Medications Medication Instructions Recorded Confirmed Type Ergocalciferol (Vitamin D2) 2,000 unit PO QAM 04/11/16 03/13/17 History [Vitamin D2] Methocarbamol 500 mg PO QID PRN 04/11/16 03/13/17 History Cyanocobalamin (Vitamin B-12) 1,000 mcg PO QAM 02/08/17 03/13/17 History [Vitamin B-12] Gabapentin Cap/Tab [Neurontin 300 mg PO BEDTIME 02/08/17 03/13/17 History Cap/Tab] Jenkins-3/Dha/Epa/Fish Oil [Fish Oil 1 each PO QAM 02/08/17 03/13/17 History 1,000 mg Softgel] Omeprazole [Prilosec] 20 mg PO QAM 02/08/17 03/13/17 History Sertraline [Zoloft] 100 mg PO QAM 02/08/17 03/13/17 History amLODIPine [Norvasc] 5 mg PO QAM 02/08/17 03/13/17 History clonazePAM TAB [KlonoPIN] 0.5 mg PO BID 02/08/17 03/13/17 History Albuterol Inhaler [Proventil 2 puff INH Q4H PRN 03/13/17 03/13/17 History Inhaler] Folic Acid Tab 1 mg PO DAILY #30 tablet 03/14/17 Rx Sodium Chloride Tab 1 gm PO BID #30 tablet 03/14/17 Rx Thiamine Tab [Vitamin B1 Tab] 100 mg PO DAILY #30 tablet 03/14/17 Rx risperiDONE TAB [RisperDAL TAB] 3 mg PO BID #45 tablet 03/14/17 03/13/17 Rx Allergies/Adverse Reactions: Allergies Allergy/AdvReac Type Severity Reaction Status Date / Time No Known Allergies Allergy Verified 02/08/17 17:40 - Constitutional Constitutional: Present: as per HPI - EENT Eyes: Present: requires corrective lense. Absent: blurry vision Ears: Present: tinnitus. Absent: decreased hearing, ear pain Nose, mouth and throat: Present: headache(s), neck pain. Absent: dysphagia, epistaxis - Cardiovascular Cardiovascular: Present: lightheadedness. Absent: chest pain at rest, chest pain with activity, diaphoresis, dyspnea, dyspnea on exertion, edema, radiating jaw, neck or arm pain, orthopnea, palpitations - Respiratory Respiratory: Absent: cough, dyspnea, hemoptysis, dyspnea on exertion, wheezing - Gastrointestinal Gastrointestinal: Present: diarrhea. Absent: abdominal pain, constipation, hematemesis, hematochezia, melena, nausea, vomiting - Genitourinary Genitourinary: Absent: dysuria, hematuria - Musculoskeletal Musculoskeletal: Absent: limited range of motion, muscle weakness - Neurological Neurological: Present: dizziness, headache(s), syncope. Absent: confusion, frequent falls - Psychiatric Psychiatric: Absent: anxiety, depression - Hematologic/Lymphatic Hematologic/Lymphatic: Present: easy bruising. Absent: easy bleeding Medical,Surgical,& Family Hx - Medical History Cardio: History of: Hypertension Psychological: History of: Anxiety Disorders, Depression, Schizophrenia, Psychiatric Problems (PTSD, paranoia) Neurology: History of: Migraine, Parkinson's Disease Respiratory: History of: Bronchitis, Respiratory Problems (Lung granuloma 2002) Genitourinary: History of: Prostate Problems (BPH) Gastrointestinal: History of: GERD, GI Problems (ulcers) Musculoskeletal: History of: Back/Neck Problems, Herniated Disk Hematology: History of: Anemia Other: History of: Eczema - Surgical History Surgical History: noncontributory (He denies any past surgical history) - Family History Family History: Reports;: Family Cancer (Sisterbreast cancer), Family Heart Disease (Father), Family Hematology (daughter-does not produce enough blood platelets), Family Hypertension (Brother), Family Psychiatric Problems (Brother alcohol dependence), Additional Family History (MotherAlzheimer's, dementia) - Social History Smoking Status: Never smoker Have you smoked in the last 12 months: No Frequency of Alcohol Use: Frequently Type of Drug Use: None Lives With:: Children Functional capacity: independent ambulation Physical Examination Vital Signs Temp Pulse Resp BP Pulse Ox 97.2 F L 84 20 146/65 97 03/13/17 18:14 03/13/17 18:14 03/13/17 18:14 03/13/17 18:14 03/13/17 18:14 General: Present: Appears Well, No Apparent Distress HEENT: Present: PERRL, Mucus Membranes Moist Neck: Present: Supple Neck, Midline Trachea, No Bruit Cardiac: Present: Reg Rate and Rhythm, No Murmur Lungs: Present: Normal Breath Sounds, No Wheeze, Rales, Rhonchi Neuro: Absent: Resting Tremor, Essential Tremor Abdomen: Present: Soft, Active Bowel Sounds, Non-Tender. Absent: Distended Skin: Absent: Rash, Suspicious Lesions Musculoskeletal: Present: No Pain, Normal Range of Motion Extremities: Present: No Edema, Normal Upper Extr. Pulses, Normal Lower Extr. Pulses Result/EKG - Labs CBC & BMP: 03/14/17 05:30 03/14/17 05:30 Lab Results: I have reviewed the past 24 hour labs Labs: Laboratory Results - last 24 hr 03/13/17 03/13/17 03/13/17 18:30 18:30 18:43 WBC 9.1 RBC 5.25 Hgb 11.6 L Hct 35.2 L MCV 67.0 L MCH 22 L MCHC 33.0 RDW 16.7 Plt Count 181 MPV 12.0 Neut % (Auto) 79.2 H Lymph % (Auto) 15.9 L Grady % (Auto) 4.1 Eos % (Auto) 0.4 Baso % (Auto) 0.2 Neut # (Auto) 7.2 Lymph # (Auto) 1.5 Grady # (Auto) 0.4 Eos # (Auto) 0.0 Baso # (Auto) 0.0 Immature Gran % 0.2 Nucleated RBC % 0.0 Immature Gran # 0.02 Nucleated RBCs # 0.00 Platelet Estimate Immature Plt Fraction 0.0 Hypochromasia Anisocytosis Microcytosis Tear Drop Cells Ovalocytes INR PT Patient/Control Mix D-Dimer, Quantitative Sodium Potassium Chloride Carbon Dioxide Anion Gap BUN Creatinine GFR Calculation BUN/Creatinine Ratio Glucose POC Glucose Hemoglobin A1c Calculated Osmolality Calcium Magnesium Total Bilirubin AST ALT Alkaline Phosphatase Troponin I B-Natriuretic Peptide Total Protein Albumin Globulin Albumin/Globulin Ratio Free T4 TSH 3rd Generation Prolactin Urine Color Colorless Urine Appearance Clear Urine pH 6.0 Ur Specific [place] 1.001 Urine Protein Negative Urine Glucose (UA) Negative Urine Ketones Negative Urine Blood Small Urine Nitrate Negative Urine Bilirubin Negative Urine Urobilinogen < 2.0 H Urine Leukocytes Negative Urine RBC <1 Ur Culture Indicated? Not indicated Ur Random Creatinine Ur Random Sodium Urine Opiates Screen Negative Ur Barbiturates Screen Negative Ur Phencyclidine Scrn Negative U Amphetamine/Methamph Negative U Benzodiazepines Scrn Negative U Cocaine Metab Screen Negative U Cannabinoids Screen Negative Serum Alcohol 03/13/17 03/13/17 03/13/17 18:43 18:43 18:43 WBC RBC Hgb Hct MCV MCH MCHC RDW Plt Count MPV Neut % (Auto) Lymph % (Auto) Grady % (Auto) Eos % (Auto) Baso % (Auto) Neut # (Auto) Lymph # (Auto) Grady # (Auto) Eos # (Auto) Baso # (Auto) Immature Gran % Nucleated RBC % Immature Gran # Nucleated RBCs # Platelet Estimate Immature Plt Fraction Hypochromasia Anisocytosis Microcytosis Tear Drop Cells Ovalocytes INR 1.1 PT Patient/Control Mix 11.6 D-Dimer, Quantitative Sodium 122 L Potassium 3.2 L Chloride 88 L Carbon Dioxide 24 Anion Gap 13.2 BUN 4 L Creatinine 1.10 GFR Calculation 95 BUN/Creatinine Ratio 3.00 L Glucose 137 H POC Glucose Hemoglobin A1c Calculated Osmolality 243.9 L Calcium 8.5 Magnesium 1.8 Total Bilirubin 0.50 AST 23 ALT 31 Alkaline Phosphatase 71 Troponin I < 0.015 B-Natriuretic Peptide 5 Total Protein 7.2 Albumin 3.5 Globulin 3.7 H Albumin/Globulin Ratio 0.9 L Free T4 TSH 3rd Generation Prolactin Urine Color Urine Appearance Urine pH Ur Specific [place] Urine Protein Urine Glucose (UA) Urine Ketones Urine Blood Urine Nitrate Urine Bilirubin Urine Urobilinogen Urine Leukocytes Urine RBC Ur Culture Indicated? Ur Random Creatinine Ur Random Sodium Urine Opiates Screen Ur Barbiturates Screen Ur Phencyclidine Scrn U Amphetamine/Methamph U Benzodiazepines Scrn U Cocaine Metab Screen U Cannabinoids Screen Serum Alcohol 03/13/17 03/13/17 03/13/17 20:30 21:07 21:07 WBC 8.3 RBC 5.18 Hgb 11.4 L Hct 34.4 L MCV 66.4 L MCH 22 L MCHC 33.1 RDW 16.7 Plt Count 192 MPV 12.1 H Neut % (Auto) 72.9 Lymph % (Auto) 19.1 L Grady % (Auto) 6.5 Eos % (Auto) 0.7 Baso % (Auto) 0.4 Neut # (Auto) 6.1 Lymph # (Auto) 1.6 Grady # (Auto) 0.5 Eos # (Auto) 0.1 Baso # (Auto) 0.0 Immature Gran % 0.4 Nucleated RBC % 0.0 Immature Gran # 0.03 Nucleated RBCs # 0.00 Platelet Estimate Immature Plt Fraction 0.0 Hypochromasia Anisocytosis Microcytosis Tear Drop Cells Ovalocytes INR PT Patient/Control Mix D-Dimer, Quantitative <= 0.5 Sodium Potassium Chloride Carbon Dioxide Anion Gap BUN Creatinine GFR Calculation BUN/Creatinine Ratio Glucose POC Glucose Hemoglobin A1c Calculated Osmolality Calcium Magnesium Total Bilirubin AST ALT Alkaline Phosphatase Troponin I B-Natriuretic Peptide Total Protein Albumin Globulin Albumin/Globulin Ratio Free T4 TSH 3rd Generation Prolactin 12.4 Urine Color Urine Appearance Urine pH Ur Specific [place] Urine Protein Urine Glucose (UA) Urine Ketones Urine Blood Urine Nitrate Urine Bilirubin Urine Urobilinogen Urine Leukocytes Urine RBC Ur Culture Indicated? Ur Random Creatinine Ur Random Sodium Urine Opiates Screen Ur Barbiturates Screen Ur Phencyclidine Scrn U Amphetamine/Methamph U Benzodiazepines Scrn U Cocaine Metab Screen U Cannabinoids Screen Serum Alcohol 03/13/17 03/13/17 03/13/17 22:43 22:43 22:43 WBC RBC Hgb Hct MCV MCH MCHC RDW Plt Count MPV Neut % (Auto) Lymph % (Auto) Grady % (Auto) Eos % (Auto) Baso % (Auto) Neut # (Auto) Lymph # (Auto) Grady # (Auto) Eos # (Auto) Baso # (Auto) Immature Gran % Nucleated RBC % Immature Gran # Nucleated RBCs # Platelet Estimate Immature Plt Fraction Hypochromasia Anisocytosis Microcytosis Tear Drop Cells Ovalocytes INR PT Patient/Control Mix D-Dimer, Quantitative Sodium Potassium Chloride Carbon Dioxide Anion Gap BUN Creatinine GFR Calculation BUN/Creatinine Ratio Glucose POC Glucose Hemoglobin A1c Calculated Osmolality Calcium Magnesium Total Bilirubin AST ALT Alkaline Phosphatase Troponin I B-Natriuretic Peptide Total Protein Albumin Globulin Albumin/Globulin Ratio Free T4 0.94 TSH 3rd Generation 3.560 Prolactin Urine Color Urine Appearance Urine pH Ur Specific [place] Urine Protein Urine Glucose (UA) Urine Ketones Urine Blood Urine Nitrate Urine Bilirubin Urine Urobilinogen Urine Leukocytes Urine RBC Ur Culture Indicated? Ur Random Creatinine Ur Random Sodium Urine Opiates Screen Ur Barbiturates Screen Ur Phencyclidine Scrn U Amphetamine/Methamph U Benzodiazepines Scrn U Cocaine Metab Screen U Cannabinoids Screen Serum Alcohol < 15 L 03/13/17 03/14/17 03/14/17 22:44 05:30 05:30 WBC 6.8 RBC 5.10 Hgb 11.0 L Hct 34.4 L MCV 67.5 L MCH 22 L MCHC 32.0 RDW 17.0 Plt Count 170 MPV Neut % (Auto) 74.4 H Lymph % (Auto) 16.6 L Grady % (Auto) 7.9 Eos % (Auto) 0.4 Baso % (Auto) 0.3 Neut # (Auto) 5.0 Lymph # (Auto) 1.1 L Grady # (Auto) 0.5 Eos # (Auto) 0.0 Baso # (Auto) 0.0 Immature Gran % 0.4 Nucleated RBC % 0.0 Immature Gran # 0.03 Nucleated RBCs # 0.00 Platelet Estimate Adequate Immature Plt Fraction 0.0 Hypochromasia 1+ Anisocytosis 1+ Microcytosis 1+ Tear Drop Cells Few Ovalocytes Slight INR PT Patient/Control Mix D-Dimer, Quantitative Sodium Potassium Chloride Carbon Dioxide Anion Gap BUN Creatinine GFR Calculation BUN/Creatinine Ratio Glucose POC Glucose Hemoglobin A1c 6.3 Calculated Osmolality Calcium Magnesium Total Bilirubin AST ALT Alkaline Phosphatase Troponin I < 0.015 B-Natriuretic Peptide Total Protein Albumin Globulin Albumin/Globulin Ratio Free T4 TSH 3rd Generation Prolactin Urine Color Urine Appearance Urine pH Ur Specific [place] Urine Protein Urine Glucose (UA) Urine Ketones Urine Blood Urine Nitrate Urine Bilirubin Urine Urobilinogen Urine Leukocytes Urine RBC Ur Culture Indicated? Ur Random Creatinine Ur Random Sodium Urine Opiates Screen Ur Barbiturates Screen Ur Phencyclidine Scrn U Amphetamine/Methamph U Benzodiazepines Scrn U Cocaine Metab Screen U Cannabinoids Screen Serum Alcohol 03/14/17 03/14/17 03/14/17 05:30 07:42 08:05 WBC RBC Hgb Hct MCV MCH MCHC RDW Plt Count MPV Neut % (Auto) Lymph % (Auto) [place] % (Auto) Eos % (Auto) Baso % (Auto) Neut # (Auto) Lymph # (Auto) [place]ady # (Auto) Eos # (Auto) Baso # (Auto) Immature Gran % Nucleated RBC % Immature Gran # Nucleated RBCs # Platelet Estimate Immature Plt Fraction Hypochromasia Anisocytosis Microcytosis Tear Drop Cells Ovalocytes INR PT Patient/Control Mix D-Dimer, Quantitative Sodium 137 Potassium 4.8 Chloride 104 Carbon Dioxide 27 Anion Gap 10.8 BUN 6 L Creatinine 1.00 GFR Calculation 107 BUN/Creatinine Ratio 6.00 Glucose 110 H POC Glucose 128 H Hemoglobin A1c Calculated Osmolality 271.8 L Calcium 8.6 Magnesium 2.8 H Total Bilirubin < 0.39 AST 20 ALT 32 Alkaline Phosphatase 66 Troponin I < 0.015 B-Natriuretic Peptide Total Protein 6.9 Albumin 3.3 L Globulin 3.6 H Albumin/Globulin Ratio 0.9 L Free T4 TSH 3rd Generation Prolactin Urine Color Urine Appearance Urine pH Ur Specific [place] Urine Protein Urine Glucose (UA) Urine Ketones Urine Blood Urine Nitrate Urine Bilirubin Urine Urobilinogen Urine Leukocytes Urine RBC Ur Culture Indicated? Ur Random Creatinine Ur Random Sodium Urine Opiates Screen Ur Barbiturates Screen Ur Phencyclidine Scrn U Amphetamine/Methamph U Benzodiazepines Scrn U Cocaine Metab Screen U Cannabinoids Screen Serum Alcohol 03/14/17 03/14/17 09:35 09:35 WBC RBC Hgb Hct MCV MCH MCHC RDW Plt Count MPV Neut % (Auto) Lymph % (Auto) [place] % (Auto) Eos % (Auto) Baso % (Auto) Neut # (Auto) Lymph # (Auto) [place] # (Auto) Eos # (Auto) Baso # (Auto) Immature Gran % Nucleated RBC % Immature Gran # Nucleated RBCs # Platelet Estimate Immature Plt Fraction Hypochromasia Anisocytosis Microcytosis Tear Drop Cells Ovalocytes INR PT Patient/Control Mix D-Dimer, Quantitative Sodium Potassium Chloride Carbon Dioxide Anion Gap BUN Creatinine GFR Calculation BUN/Creatinine Ratio Glucose POC Glucose Hemoglobin A1c Calculated Osmolality Calcium Magnesium Total Bilirubin AST ALT Alkaline Phosphatase Troponin I B-Natriuretic Peptide Total Protein Albumin Globulin Albumin/Globulin Ratio Free T4 TSH 3rd Generation Prolactin Urine Color Urine Appearance Urine pH Ur Specific [place] Urine Protein Urine Glucose (UA) Urine Ketones Urine Blood Urine Nitrate Urine Bilirubin Urine Urobilinogen Urine Leukocytes Urine RBC Ur Culture Indicated? Ur Random Creatinine 30 Ur Random Sodium 43.0 Urine Opiates Screen Ur Barbiturates Screen Ur Phencyclidine Scrn U Amphetamine/Methamph U Benzodiazepines Scrn U Cocaine Metab Screen U Cannabinoids Screen Serum Alcohol - Diagnostic Findings Procedure: Chest x-ray: report reviewed by me - EKG EKG results: interpreted by me EKG shows: sinus rhythm (First-degree AV block) Specialty Discharge - Follow Up or Referrals Follow up with: Dr Gopi [Other] - [address] dr ariel [Other] - 1 Week Neurology, [Other] - 2 Weeks Ileana Ramon Michael, MD, personally performed the services described in this documentation, ascribed by Kari Cook RN in my presence, and it is both accurate and complete 540 .
[2017-03-14] MEDS ORDERED: GABAPENTIN 300 MG CAPSULE PO SCH (21:00)
[2017-03-14] MEDS ORDERED: traZODone 50 MG TABLET PO SCH (21:00)
--- NOTE | 2017-03-19 20:36 | Order Completion Report ---
See report scanned to EMR
== END 2017-03-14 15:20 | disposition home or self-care (01) | DRG 641 ==
LOC: N.ED 18:07 → SUATTDRO 21:42 → N.EDINP 21:42 → N.4E 22:09
PROVIDERS: ADMIT Internal Medicine; ATTEND Internal Medicine

== ENCOUNTER 2019-01-25 11:27 | Observation (INO) ==
[2019-01-25] MEDS ORDERED: DILTIAZEM 50 MG/10 ML VIAL IV STA ×2 (11:51→12:52)
[2019-01-25] MEDS ORDERED: SODIUM CHLORIDE 0.9% 500 ML IV STA (11:51)
[2019-01-25] MEDS ORDERED: dilTIAZem Drip 125 MG/125 ML PREMIX IV SCH ×2 (12:00→16:30)
[2019-01-25 12:26] LABS: Basophils % 0.2 % (0.0-0.8); Eosinophils % 0.2 % (0.00-10.9); Hematocrit 41.3 VOL% (42.0-52.0); Hemoglobin 12.7 GM/DL (14.0-18.0); Immature Granulocytes % 0.5 %; Immature Granulocytes Absolute 0.04 #; Lymphocytes # 1.6 10*3/uL (1.4-4.0); Mean Corpuscular HGB Conc 30.8 GM/DL (32-36); Mean Corpuscular Volume 70.6 FL (87-102); Mean Platelet Volume 11.9 FL (9.6-12.0); Monocytes % 5.9 % (1.7-12.7); Neutrophils % 75.2 % (38.7-73.9); Red Blood Count 5.85 MC/CUMM (3.8-5.5); Red Cell Distribution Width 17.1 % (9.3-17.3); White Blood Count 8.7 T/CUMM (4-12)
[2019-01-25 12:29] LABS: Platelet Count 203 T/CUMM (130-400)
[2019-01-25 12:39] LABS: PT Patient Result 10.9 SECS; Partial Thromboplastin Time 27.1 SECS (0-40)
[2019-01-25 12:51] LABS: Albumin 3.9 G/DL (3.4-5.0); Bilirubin,Total 0.6 MG/DL (0.2-1.0); Calcium 9.2 MG/DL (8.5-10.1); Osmolality,Calculated 268.1 MOS/KG (273-304); Thyroid Stimulating Hormone 3.94 uIU/ml (0.358-3.74); Total Protein 8.2 G/DL (6.4-8.3)
[2019-01-25 13:24] LABS: Apearance,Urine CLEAR (Clear); Bacteria,Urine Occasional /HPF (Few); Bilirubin,Urine Negative (Negative); Blood, Urine Small mg/dL (Negative); Glucose,Urine (UA) Negative (Negative); Ketones,Urine Negative (Negative); Nitrite,Urine Negative (Negative); Protein,Urine Negative; RBC,Urine 1 /HPF (0-4); Urine Color Colorless (Yellow); Urine Specific Gravity 1.001 (1.001-1.035); Urine Urobilinogen < 2.0 EU/DL (0.2-1.0)
[2019-01-25 13:42] LABS: Barbiturates Screen,Urine Negative (Negative); Benzodiazepines Screen,Urine Negative (Negative); Cannabinoid Screen,Urine Negative (Negative); Opiate Screen,Urine Negative (Negative); Phencyclidine Screen,Urine Negative (Negative)
[2019-01-25] MEDS ORDERED: ONDANSETRON 4 MG/2 ML VIAL IV PRN (16:23)
[2019-01-25] MEDS ORDERED: SODIUM CHLORIDE 0.9% 1,000 ML IV SCH (16:30)
[2019-01-25] MEDS: DILTIAZEM 30 MG TABLET PO SCH ×2 (17:44→21:47)
[2019-01-25] MEDS ORDERED: GABAPENTIN 300 MG CAPSULE PO SCH (21:00)
[2019-01-25] MEDS: clonazePAM 0.5 MG TABLET PO SCH (21:47)
[2019-01-25] MEDS: APIXABAN 5 MG TABLET PO SCH (21:47)
[2019-01-26 06:26] LABS: Basophils % 0.3 % (0.0-0.8); Eosinophils # 0.1 10*3/uL (0.0-0.87); Hematocrit 37.2 VOL% (42.0-52.0); Hemoglobin 11.5 GM/DL (14.0-18.0); Immature Granulocytes % 0.4 %; Immature Granulocytes Absolute 0.03 #; Lymphocytes # 1.4 10*3/uL (1.4-4.0); Lymphocytes % 20.2 % (21.2-54.2); Mean Corpuscular HGB Conc 30.9 GM/DL (32-36); Mean Corpuscular Volume 71.7 FL (87-102); Mean Platelet Volume 12.5 FL (9.6-12.0); Monocytes % 7.8 % (1.7-12.7); Neutrophils % 70.3 % (38.7-73.9); Platelet Count 182 T/CUMM (130-400); Red Blood Count 5.19 MC/CUMM (3.8-5.5); Red Cell Distribution Width 16.5 % (9.3-17.3); White Blood Count 6.8 T/CUMM (4-12)
[2019-01-26 06:52] LABS: Hypochromasia 1+; Microcytosis 1+; Ovalocytes Slight; Platelet Estimate Adequate
[2019-01-26] MEDS: risperiDONE 1 MG TABLET PO SCH ×2 (06:55→08:32)
[2019-01-26 06:57] LABS: Albumin 3.2 G/DL (3.4-5.0); Calcium 8.3 MG/DL (8.5-10.1); Osmolality,Calculated 277.4 MOS/KG (273-304); Risk Ratio 5.44; VLDL CHOLESTEROL 53.6 MG/DL
[2019-01-26] MEDS: DILTIAZEM 30 MG TABLET PO SCH ×2 (08:33→14:25)
[2019-01-26] MEDS: clonazePAM 0.5 MG TABLET PO SCH (08:33)
[2019-01-26] MEDS: APIXABAN 5 MG TABLET PO SCH (08:34)
[2019-01-26] MEDS ORDERED: amLODIPine 5 MG TABLET PO SCH (09:00)
[2019-01-26] MEDS ORDERED: SERTRALINE 100 MG TABLET PO SCH (09:00)
[2019-01-26] MEDS ORDERED: PANTOPRAZOLE 40 MG TABLET PO SCH (09:00)
[2019-01-26 11:38] VITALS: BP 165/79
[2019-01-26] MEDS ORDERED: ASCORBIC ACID 500 MG TABLET PO SCH (14:30)
== END 2019-01-26 14:40 | disposition home or self-care (01) ==
LOC: N.EDINP 11:27 → N.ED 11:27 → SUATTDRO 15:34 → N.TELEN 16:50
PROVIDERS: ADMIT Internal Medicine; ATTEND Family Medicine

== ENCOUNTER 2020-03-17 05:33 | Inpatient (IN) ==
[2020-03-17] MEDS ORDERED: PANTOPRAZOLE 40 MG VIAL IV STA (06:13)
[2020-03-17] MEDS ORDERED: SODIUM CHLORIDE 0.9% 1,000 ML IV STA (06:13)
[2020-03-17] MEDS ORDERED: ONDANSETRON 4 MG/2 ML VIAL IV STA (06:13)
[2020-03-17] MEDS ORDERED: SODIUM CHLORIDE 0.9% 1,000 ML IV PRN ×2 (06:15→18:32)
[2020-03-17 06:42] LABS: Basophils # 0.1 10*3/uL (0.0-0.2); Basophils % 0.2 % (0.0-0.8); Hematocrit 19.4 VOL% (42.0-52.0); Immature Granulocytes % 2.5 %; Immature Granulocytes Absolute 0.95 #; Lymphocytes # 1.2 10*3/uL (1.4-4.0); Lymphocytes % 3.3 % (21.2-54.2); Mean Platelet Volume 12.9 FL (9.6-12.0); Monocytes % 4.8 % (1.7-12.7); NRBC # 0.03 10*3/uL; Neutrophils % 89.2 % (38.7-73.9); Platelet Count 412 T/CUMM (130-400); Red Blood Count 2.52 MC/CUMM (3.8-5.5); Red Cell Distribution Width 16.2 % (9.3-17.3); White Blood Count 37.4 T/CUMM (4-12)
[2020-03-17 06:44] LABS: Hemoglobin 6.2 GM/DL (14.0-18.0)
[2020-03-17 06:50] LABS: INR 1.2; PT Patient Result 12.3 SECS (9.8-11.9); Partial Thromboplastin Time 23.9 SECS (23.9-33.8)
[2020-03-17 07:01] LABS: Band Neutrophils 2 % (0-10); Hypochromasia 2+; Lymphocytes 3 % (20-55); Macrocytosis Slight; Nucleated Red Blood Cells 1 (0-5); Platelet Estimate Adequate; Polychromasia Slight; Segmented Neutrophils 90 % (50-85); Total Cells Counted 100
[2020-03-17 07:02] LABS: Alanine Aminotransferase 55 U/L (16-61); Albumin 2.6 G/DL (3.4-5.0); Alkaline Phosphatase 44 U/L (45-117); Aspartate Amino Transferase 41 U/L (0-37); Bilirubin,Total < 0.39 MG/DL (0.2-1.0); Blood Urea Nitrogen 12 MG/DL (7-18); Estimated Glom Filtration Rate 54 ML/MIN; Glucose 341 MG/DL (74-106); Osmolality,Calculated 272.8 MOS/KG (273-304); Total Protein 5.6 G/DL (6.4-8.3)
[2020-03-17] MEDS ORDERED: ALBUTEROL 2.5 MG/3 ML NEB RESP TX PRN (07:29)
[2020-03-17] MEDS ORDERED: PANTOPRAZOLE 40 MG TABLET PO SCH (09:00)
[2020-03-17 09:35] LABS: Bilirubin,Urine Negative (Negative); Blood, Urine Negative (Negative); Glucose,Urine (UA) >=500 mg/dL (Negative); Hyaline Casts,Urine 6 /LPF (0-3); Ketones,Urine Negative (Negative); Mucus,Urine Occasional /LPF (Occasional); Nitrite,Urine Negative (Negative); Protein,Urine Negative; Squamous Epithelial Cell,Urine Occasional /HPF (0-10); Urine Appearance CLOUDY (Clear); Urine Color Yellow (Yellow); Urine Specific Gravity 1.014 (1.001-1.035); Urine Urobilinogen < 2.0 EU/DL (0.2-1.0)
[2020-03-17] MEDS: SODIUM CHLORIDE 0.9% 1,000 ML IV SCH (09:45)
[2020-03-17] MEDS: INSULIN LISPRO 100 UNIT/ML SUBCUT SCH ×2 (11:47→18:04)
[2020-03-17] MEDS: LEVOFLOXACIN INJ 750 MG in PREMIX 1 EACH IV SCH (16:13)
[2020-03-17 18:15] LABS: Basophils % 0.1 % (0.0-0.8); Hematocrit 22.5 VOL% (42.0-52.0); Hemoglobin 7.5 GM/DL (14.0-18.0); Immature Granulocytes % 0.7 %; Immature Granulocytes Absolute 0.11 #; Lymphocytes # 0.9 10*3/uL (1.4-4.0); Lymphocytes % 5.3 % (21.2-54.2); Mean Corpuscular HGB Conc 33.3 GM/DL (32-36); Mean Corpuscular Volume 76.8 FL (87-102); Mean Platelet Volume 12.2 FL (9.6-12.0); Monocytes % 5.1 % (1.7-12.7); Neutrophils % 88.8 % (38.7-73.9); Platelet Count 209 T/CUMM (130-400); Red Blood Count 2.93 MC/CUMM (3.8-5.5); Red Cell Distribution Width 17.7 % (9.3-17.3); White Blood Count 16.6 T/CUMM (4-12)
[2020-03-17] MEDS: PANTOPRAZOLE 40 MG VIAL IV SCH (21:02)
[2020-03-18] MEDS: INSULIN LISPRO 100 UNIT/ML SUBCUT SCH ×4 (00:27→17:40)
[2020-03-18 04:44] LABS: Basophils % 0.1 % (0.0-0.8); Hematocrit 26.7 VOL% (42.0-52.0); Hemoglobin 8.8 GM/DL (14.0-18.0); Immature Granulocytes % 0.6 %; Immature Granulocytes Absolute 0.07 #; Lymphocytes # 0.7 10*3/uL (1.4-4.0); Lymphocytes % 5.9 % (21.2-54.2); Mean Corpuscular Volume 79.2 FL (87-102); Mean Platelet Volume 12.6 FL (9.6-12.0); Monocytes % 5.7 % (1.7-12.7); Neutrophils % 87.7 % (38.7-73.9); Platelet Count 167 T/CUMM (130-400); Red Blood Count 3.37 MC/CUMM (3.8-5.5); White Blood Count 12.1 T/CUMM (4-12)
[2020-03-18 05:03] LABS: Calcium 8.2 MG/DL (8.5-10.1); Osmolality,Calculated 270.1 MOS/KG (273-304)
[2020-03-18] MEDS: SODIUM CHLORIDE 0.9% 1,000 ML IV SCH ×3 (05:31→16:45)
[2020-03-18] MEDS ORDERED: LORazepam 1 MG TABLET PO PRN (07:18)
[2020-03-18] MEDS ORDERED: NICOTINE 14 MG/24 HR PATCH TRANSDERM PRN (07:19)
[2020-03-18] MEDS ORDERED: PANTOPRAZOLE 40 MG VIAL IV SCH (09:00)
[2020-03-18] MEDS: PANTOPRAZOLE 40 MG VIAL IV SCH ×2 (09:23→22:32)
[2020-03-18] MEDS: LEVOFLOXACIN INJ 750 MG in PREMIX 1 EACH IV SCH (09:23)
[2020-03-18] MEDS: LORazepam 1 MG TABLET PO PRN ×3 (10:49→11:59)
[2020-03-18] MEDS ORDERED: ALBUTEROL 2.5 MG/3 ML NEB RESP TX PRN (13:20)
[2020-03-18] MEDS: DIAZEPAM 10 MG/2 ML SYRINGE IM PRN ×2 (13:28→19:26)
[2020-03-18] MEDS: HALOPERIDOL 5 MG/ML AMP IM PRN ×2 (13:28→19:26)
[2020-03-18] MEDS: DILTIAZEM CD 180 MG CAPSULE PO SCH (16:02)
[2020-03-18] MEDS: SODIUM CHLORIDE 1 GM TABLET PO SCH (22:32)
[2020-03-18] MEDS: GABAPENTIN 300 MG CAPSULE PO SCH (22:32)
[2020-03-18] MEDS: risperiDONE 1 MG TABLET PO SCH (22:32)
[2020-03-19] MEDS: INSULIN LISPRO 100 UNIT/ML SUBCUT SCH ×4 (02:26→17:59)
[2020-03-19] MEDS: SODIUM CHLORIDE 0.9% 1,000 ML IV SCH ×2 (02:44→14:04)
[2020-03-19] MEDS: amLODIPine 5 MG TABLET PO SCH (09:03)
[2020-03-19] MEDS: SERTRALINE 100 MG TABLET PO SCH (09:03)
[2020-03-19] MEDS: CHOLECALCIFEROL 1,000 UNIT TABLET PO SCH (09:03)
[2020-03-19] MEDS: THIAMINE 100 MG TABLET PO SCH (09:03)
[2020-03-19] MEDS: DILTIAZEM CD 180 MG CAPSULE PO SCH (09:04)
[2020-03-19] MEDS: FOLIC ACID 1 MG TABLET PO SCH (09:04)
[2020-03-19] MEDS: CYANOCOBALAMIN 500 MCG TABLET PO SCH (09:04)
[2020-03-19] MEDS: OMEGA 3 ACID ETHYL ESTERS 1 GM CAPSULE PO SCH (09:04)
[2020-03-19] MEDS: risperiDONE 1 MG TABLET PO SCH ×2 (09:05→20:09)
[2020-03-19] MEDS: SODIUM CHLORIDE 1 GM TABLET PO SCH ×2 (09:05→20:09)
[2020-03-19] MEDS: PANTOPRAZOLE 40 MG VIAL IV SCH ×2 (09:07→20:08)
[2020-03-19] MEDS: LEVOFLOXACIN INJ 750 MG in PREMIX 1 EACH IV SCH (09:08)
[2020-03-19 09:49] LABS: Basophils % 0.1 % (0.0-0.8); Eosinophils % 0.2 % (0.00-10.9); Hematocrit 28.8 VOL% (42.0-52.0); Hemoglobin 9.5 GM/DL (14.0-18.0); Immature Granulocytes % 0.5 %; Immature Granulocytes Absolute 0.05 #; Lymphocytes % 10.6 % (21.2-54.2); Mean Corpuscular Volume 80.4 FL (87-102); Monocytes % 5.1 % (1.7-12.7); Neutrophils % 83.5 % (38.7-73.9); Platelet Count 179 T/CUMM (130-400); Red Blood Count 3.58 MC/CUMM (3.8-5.5); Red Cell Distribution Width 16.9 % (9.3-17.3); White Blood Count 9.7 T/CUMM (4-12)
[2020-03-19 10:10] LABS: Calcium 8.6 MG/DL (8.5-10.1); Osmolality,Calculated 274.5 MOS/KG (273-304)
[2020-03-19] MEDS: DIAZEPAM 10 MG/2 ML SYRINGE IM PRN ×2 (13:02→20:08)
[2020-03-19] MEDS: GABAPENTIN 300 MG CAPSULE PO SCH (20:09)
[2020-03-20] MEDS: INSULIN LISPRO 100 UNIT/ML SUBCUT SCH ×4 (01:59→18:57)
[2020-03-20] MEDS: SODIUM CHLORIDE 0.9% 1,000 ML IV SCH ×2 (02:00→11:44)
[2020-03-20 05:56] LABS: Basophils % 0.1 % (0.0-0.8); Eosinophils # 0.1 10*3/uL (0.0-0.87); Eosinophils % 0.6 % (0.00-10.9); Hematocrit 23.7 VOL% (42.0-52.0); Hemoglobin 7.5 GM/DL (14.0-18.0); Immature Granulocytes % 0.5 %; Immature Granulocytes Absolute 0.04 #; Lymphocytes # 1.1 10*3/uL (1.4-4.0); Lymphocytes % 12.9 % (21.2-54.2); Mean Corpuscular HGB Conc 31.6 GM/DL (32-36); Mean Corpuscular Volume 81.2 FL (87-102); Mean Platelet Volume 12.2 FL (9.6-12.0); Monocytes % 5.5 % (1.7-12.7); Neutrophils % 80.4 % (38.7-73.9); Platelet Count 173 T/CUMM (130-400); Red Blood Count 2.92 MC/CUMM (3.8-5.5); White Blood Count 8.6 T/CUMM (4-12)
[2020-03-20 06:32] LABS: Calcium 8.5 MG/DL (8.5-10.1); Osmolality,Calculated 273.5 MOS/KG (273-304)
[2020-03-20] MEDS: OMEGA 3 ACID ETHYL ESTERS 1 GM CAPSULE PO SCH (08:40)
[2020-03-20] MEDS: CHOLECALCIFEROL 1,000 UNIT TABLET PO SCH (08:40)
[2020-03-20] MEDS: DILTIAZEM CD 180 MG CAPSULE PO SCH (08:40)
[2020-03-20] MEDS: SODIUM CHLORIDE 1 GM TABLET PO SCH ×2 (08:40→20:25)
[2020-03-20] MEDS: THIAMINE 100 MG TABLET PO SCH (08:40)
[2020-03-20] MEDS: amLODIPine 5 MG TABLET PO SCH (08:40)
[2020-03-20] MEDS: SERTRALINE 100 MG TABLET PO SCH (08:40)
[2020-03-20] MEDS: FOLIC ACID 1 MG TABLET PO SCH (08:40)
[2020-03-20] MEDS: PANTOPRAZOLE 40 MG VIAL IV SCH ×2 (08:41→20:26)
[2020-03-20] MEDS: CYANOCOBALAMIN 500 MCG TABLET PO SCH (09:17)
[2020-03-20] MEDS: risperiDONE 1 MG TABLET PO SCH ×2 (09:17→20:26)
[2020-03-20] MEDS: LEVOFLOXACIN INJ 750 MG in PREMIX 1 EACH IV SCH (09:17)
[2020-03-20] MEDS ORDERED: POTASSIUM CHLORIDE 20 MEQ TABLET PO ONE (13:36)
[2020-03-20] MEDS ORDERED: METOPROLOL TARTRATE 5 MG/5 ML VIAL IV ONE (13:48)
[2020-03-20] MEDS: ASCORBIC ACID 500 MG TABLET PO SCH ×2 (14:17→20:26)
[2020-03-20] MEDS ORDERED: SODIUM CHLORIDE 0.9% 1,000 ML IV PRN (15:52)
[2020-03-20] MEDS: GABAPENTIN 300 MG CAPSULE PO SCH (20:25)
[2020-03-20] MEDS: DILTIAZEM CD 120 MG CAPSULE PO SCH (20:25)
[2020-03-21] MEDS: INSULIN LISPRO 100 UNIT/ML SUBCUT SCH ×4 (00:54→17:38)
[2020-03-21] MEDS: SODIUM CHLORIDE 0.9% 1,000 ML IV SCH ×3 (02:11→23:50)
[2020-03-21 06:36] LABS: Basophils % 0.1 % (0.0-0.8); Eosinophils # 0.1 10*3/uL (0.0-0.87); Eosinophils % 1.2 % (0.00-10.9); Hematocrit 28.7 VOL% (42.0-52.0); Immature Granulocytes % 0.5 %; Immature Granulocytes Absolute 0.04 #; Lymphocytes # 1.1 10*3/uL (1.4-4.0); Lymphocytes % 12.6 % (21.2-54.2); Mean Corpuscular HGB Conc 32.8 GM/DL (32-36); Mean Corpuscular Volume 79.7 FL (87-102); Mean Platelet Volume 12.9 FL (9.6-12.0); Monocytes % 6.9 % (1.7-12.7); Neutrophils % 78.7 % (38.7-73.9); Platelet Count 183 T/CUMM (130-400); Red Cell Distribution Width 17.2 % (9.3-17.3); White Blood Count 8.5 T/CUMM (4-12)
[2020-03-21 06:37] LABS: Hemoglobin 9.4 GM/DL (14.0-18.0)
[2020-03-21 06:47] LABS: Calcium 8.6 MG/DL (8.5-10.1); Osmolality,Calculated 274.5 MOS/KG (273-304)
[2020-03-21] MEDS: PANTOPRAZOLE 40 MG VIAL IV SCH ×2 (09:58→20:54)
[2020-03-21] MEDS: DILTIAZEM CD 120 MG CAPSULE PO SCH (09:59)
[2020-03-21] MEDS: risperiDONE 1 MG TABLET PO SCH ×2 (10:00→20:54)
[2020-03-21] MEDS: CHOLECALCIFEROL 1,000 UNIT TABLET PO SCH (10:00)
[2020-03-21] MEDS: CYANOCOBALAMIN 500 MCG TABLET PO SCH (10:00)
[2020-03-21] MEDS: THIAMINE 100 MG TABLET PO SCH (10:01)
[2020-03-21] MEDS: FOLIC ACID 1 MG TABLET PO SCH (10:01)
[2020-03-21] MEDS: ASCORBIC ACID 500 MG TABLET PO SCH ×2 (10:01→20:54)
[2020-03-21] MEDS: SODIUM CHLORIDE 1 GM TABLET PO SCH ×2 (10:01→20:54)
[2020-03-21] MEDS: OMEGA 3 ACID ETHYL ESTERS 1 GM CAPSULE PO SCH (10:01)
[2020-03-21] MEDS: SERTRALINE 100 MG TABLET PO SCH (10:01)
[2020-03-21] MEDS: LEVOFLOXACIN INJ 750 MG in PREMIX 1 EACH IV SCH (10:02)
[2020-03-21] MEDS ORDERED: POTASSIUM CHLORIDE 20 MEQ TABLET PO ONE (12:58)
[2020-03-21] MEDS: GABAPENTIN 300 MG CAPSULE PO SCH (20:54)
[2020-03-21] MEDS: DILTIAZEM CD 180 MG CAPSULE PO SCH (20:54)
[2020-03-22] MEDS: INSULIN LISPRO 100 UNIT/ML SUBCUT SCH ×4 (00:23→18:46)
[2020-03-22 05:02] LABS: Basophils % 0.1 % (0.0-0.8); Eosinophils # 0.1 10*3/uL (0.0-0.87); Eosinophils % 1.3 % (0.00-10.9); Hematocrit 27.6 VOL% (42.0-52.0); Hemoglobin 9.1 GM/DL (14.0-18.0); Immature Granulocytes % 0.4 %; Immature Granulocytes Absolute 0.03 #; Lymphocytes # 0.9 10*3/uL (1.4-4.0); Lymphocytes % 12.8 % (21.2-54.2); Mean Corpuscular Volume 78.6 FL (87-102); Mean Platelet Volume 11.9 FL (9.6-12.0); Monocytes % 7.9 % (1.7-12.7); Neutrophils % 77.5 % (38.7-73.9); Platelet Count 191 T/CUMM (130-400); Red Blood Count 3.51 MC/CUMM (3.8-5.5); Red Cell Distribution Width 16.8 % (9.3-17.3); White Blood Count 7.2 T/CUMM (4-12)
[2020-03-22 05:14] LABS: Calcium 8.6 MG/DL (8.5-10.1); Osmolality,Calculated 274.5 MOS/KG (273-304)
[2020-03-22] MEDS ORDERED: propofoL 200 MG/20 ML VIAL IV ONE (09:00)
[2020-03-22] MEDS ORDERED: LIDOCAINE 2% 5 ML VIAL ONE (09:00)
[2020-03-22] MEDS: SODIUM CHLORIDE 0.9% 1,000 ML IV SCH (12:19)
[2020-03-22] MEDS: risperiDONE 1 MG TABLET PO SCH ×2 (12:21→20:23)
[2020-03-22] MEDS: SERTRALINE 100 MG TABLET PO SCH (12:21)
[2020-03-22] MEDS: CYANOCOBALAMIN 500 MCG TABLET PO SCH (12:21)
[2020-03-22] MEDS: ASCORBIC ACID 500 MG TABLET PO SCH ×2 (12:21→20:23)
[2020-03-22] MEDS: PANTOPRAZOLE 40 MG VIAL IV SCH ×2 (12:21→20:23)
[2020-03-22] MEDS: DILTIAZEM CD 180 MG CAPSULE PO SCH ×2 (12:22→20:23)
[2020-03-22] MEDS: FOLIC ACID 1 MG TABLET PO SCH (12:22)
[2020-03-22] MEDS: OMEGA 3 ACID ETHYL ESTERS 1 GM CAPSULE PO SCH (12:23)
[2020-03-22] MEDS: CHOLECALCIFEROL 1,000 UNIT TABLET PO SCH (12:23)
[2020-03-22] MEDS: SODIUM CHLORIDE 1 GM TABLET PO SCH ×2 (12:24→20:23)
[2020-03-22] MEDS: THIAMINE 100 MG TABLET PO SCH (12:24)
[2020-03-22] MEDS: LEVOFLOXACIN INJ 750 MG in PREMIX 1 EACH IV SCH (13:44)
[2020-03-22] MEDS: GABAPENTIN 300 MG CAPSULE PO SCH (20:23)
[2020-03-23] MEDS: SODIUM CHLORIDE 0.9% 1,000 ML IV SCH ×2 (00:06→10:42)
[2020-03-23] MEDS: INSULIN LISPRO 100 UNIT/ML SUBCUT SCH ×2 (00:57→06:30)
[2020-03-23 07:11] LABS: Basophils % 0.2 % (0.0-0.8); Eosinophils # 0.1 10*3/uL (0.0-0.87); Eosinophils % 1.1 % (0.00-10.9); Hematocrit 29.1 VOL% (42.0-52.0); Hemoglobin 9.4 GM/DL (14.0-18.0); Immature Granulocytes % 0.3 %; Immature Granulocytes Absolute 0.02 #; Lymphocytes # 1.1 10*3/uL (1.4-4.0); Lymphocytes % 16.9 % (21.2-54.2); Mean Corpuscular HGB Conc 32.3 GM/DL (32-36); Mean Corpuscular Volume 79.3 FL (87-102); Mean Platelet Volume 11.7 FL (9.6-12.0); Monocytes % 8.1 % (1.7-12.7); Neutrophils % 73.4 % (38.7-73.9); Platelet Count 205 T/CUMM (130-400); Red Blood Count 3.67 MC/CUMM (3.8-5.5); Red Cell Distribution Width 16.9 % (9.3-17.3); White Blood Count 6.3 T/CUMM (4-12)
[2020-03-23 07:30] LABS: Calcium 8.6 MG/DL (8.5-10.1)
[2020-03-23] MEDS: PANTOPRAZOLE 40 MG VIAL IV SCH (08:40)
[2020-03-23] MEDS: ASCORBIC ACID 500 MG TABLET PO SCH (08:41)
[2020-03-23] MEDS: CHOLECALCIFEROL 1,000 UNIT TABLET PO SCH (08:41)
[2020-03-23] MEDS: risperiDONE 1 MG TABLET PO SCH (08:41)
[2020-03-23] MEDS: CYANOCOBALAMIN 500 MCG TABLET PO SCH (08:41)
[2020-03-23] MEDS: SODIUM CHLORIDE 1 GM TABLET PO SCH (08:41)
[2020-03-23] MEDS: THIAMINE 100 MG TABLET PO SCH (08:42)
[2020-03-23] MEDS: OMEGA 3 ACID ETHYL ESTERS 1 GM CAPSULE PO SCH (08:42)
[2020-03-23] MEDS: FOLIC ACID 1 MG TABLET PO SCH (08:42)
[2020-03-23] MEDS: SERTRALINE 100 MG TABLET PO SCH (08:42)
[2020-03-23] MEDS: DILTIAZEM CD 180 MG CAPSULE PO SCH (08:42)
[2020-03-23] MEDS: LEVOFLOXACIN INJ 750 MG in PREMIX 1 EACH IV SCH (10:42)
[2020-03-23 12:31] VITALS: BP 120/74
== END 2020-03-23 14:10 | disposition home or self-care (01) | DRG 813 ==
LOC: EDUNIT# → N.ED 05:33 → N.EDINP 07:29 → SUATTDRO 07:29 → N.CC 08:09 → N.4E 03-19 16:00
PROVIDERS: ADMIT Internal Medicine; ATTEND Internal Medicine